=== PATIENT | female | born 1955 | race Caucasian/White ===

== ENCOUNTER 2019-04-11 03:54 | Emergency (ER) | payer MEDICARE ==
[~2019-04-11] VITALS: Ht 177.8 cm; Wt 113.4 kg
[~2019-04-11 03:54] MED LIST: BACL20TA PO; HYDR-4792 PO; MONT10TA23 PO; OMEP20CA74 PO; THYR48.7 PO
[2019-04-11] MEDS ORDERED: ACETAMINOPHEN 650 MG RECT SUPP PR ONE (04:15)
[2019-04-11] MEDS ORDERED: SODIUM CHLORIDE 0.9% 2,700 ML IV ONE (04:30)
[2019-04-11 05:22] LABS: Basophils # (auto) 0 uL; Basophils % (auto) 0.2 % (0.0-2.0); Eosinophils # (auto) 0 uL; Eosinophils % (auto) 0.3 % (0.0-7.0); Hematocrit 41.7 % (36.0-46.0); Lymphocytes # (auto) 0.7 uL; Lymphocytes % (auto) 9.6 % (10.0-50.0); Mean Corpuscular Hgb Conc. 33.6 g/dL (32.0-36.0); Mean Corpuscular Volume 83.4 fL (80.0-100.0); Monocytes # (auto) 0.3 uL; Monocytes % (auto) 3.9 % (0.0-12.0); Neutrophils # (auto) 5.9 uL; Nucleated Red Blood Cells % 0.1 %; Platelet Count (auto) 118 10^3/uL (140-450); Red Cell Distribution Width 14.4 % (11.8-14.3); White Blood Cell 6.9 10^3/uL (4.4-10.8)
[2019-04-11 05:27] LABS: Urine Bacteria FEW /hpf (None Seen); Urine Blood 2+ /uL (Negative); Urine Hyaline Cast FEW /lpf (0 - 2); Urine Mucus FEW (None Seen); Urine Specific Gravity 1.012 (1.001-1.035); Urine WBC <1 /hpf (0 - 5)
[2019-04-11 05:38] LABS: Calcium 8.2 mg/dL (8.5-10.1); Chloride 107 mmol/L (98-107); Potassium 3.9 mmol/L (3.5-5.1); Sodium 141 mmol/L (136-145)
[2019-04-11 05:41] LABS: Alcohol, Urine < 3.0 mg/dL (0-5); Amphetamine Screen, Urine NEGATIVE (NEGATIVE); Barbiturate Scree,Urine NEGATIVE (NEGATIVE); Benzodiazephine Screen, Urine NEGATIVE (NEGATIVE); Cannabinoid Screen, Urine NEGATIVE (NEGATIVE); Cocaine Screen, Urine NEGATIVE (NEGATIVE); Opiate Scree,Urine NEGATIVE (NEGATIVE); Phencyclidine Screen, Urine NEGATIVE (NEGATIVE)
[2019-04-11 05:45] LABS: Lactic Acid w/Reflex 3.2 mmol/L (0.4-2.0)
[2019-04-11 05:47] LABS: Alanine Aminotransferase 49 U/L (13-56); Alkaline Phosphatase 102 U/L (45-117); Anion Gap 8 (5-15); Aspartate Aminotransferase 43 U/L (15-37); BUN/Creatinine Ratio 9.2; Bilirubin, Total 0.6 mg/dL (0.2-1.0); Blood Alcohol < 3.0 mg/dL (0-5); Blood Urea Nitrogen 13 mg/dL (7-18); Carbon Dioxide 26 mmol/L (21-32); GFR African American 48 mL/min; GFR Non-African American 40 mL/min; Glucose 103 mg/dL (74-106); Magnesium 1.6 mg/dL (1.6-2.6); Total Protein 6.9 g/dL (6.4-8.2)
[2019-04-11 06:46] LABS: INR 1.13 (0.9-1.15); Partial Thromboplastin Time 29.8 sec (23.64-32.05)
[2019-04-11 06:47] VITALS: BP 173/76
== END 2019-04-11 06:15 | disposition short-term general hospital (02) ==
LOC: EDBD 03:54 → ER 03:54
DX: I60.9 Nontraumatic subarachnoid hemorrhage, unspecified (principal); K57.90 Diverticulosis of intestine, part unspecified, without perforation or abscess without bleeding; J32.9 Chronic sinusitis, unspecified; R41.82 Altered mental status, unspecified; E78.5 Hyperlipidemia, unspecified; E07.9 Disorder of thyroid, unspecified
CPT/HCPCS: 36415; 70450; 71045; 72125; 74176; 80053; 80307; 80320; 81001; 83605; 83735; 84484; 85025; 85610; 85730; 87040; 93005; 96360; 99291; J7030; L0120

== ENCOUNTER 2020-02-28 06:34 | Inpatient (IN) | payer MEDICARE, OTHER ==
[~2020-02-28] VITALS: Ht 172.7 cm; Wt 84.4 kg
[~2020-02-28 06:34] MED LIST changes: +HYDR-4623 PO; -HYDR-4792 PO
[2020-02-28 10:59] LABS: Basophils # (auto) 0 10 ^3/uL (0-0.2); Basophils % (auto) 0.2 % (0.0-2.0); Eosinophils # (auto) 0 10 ^3/uL (0-0.8); Eosinophils % (auto) 0.1 % (0.0-7.0); Hematocrit 45.1 % (36.0-46.0); Hemoglobin 14.6 g/dL (12.2-16.2); Lymphocytes # (auto) 0.3 10 ^3/uL (0.4-5.4); Lymphocytes % (auto) 1.9 % (10.0-50.0); Mean Corpuscular Hemoglobin 27.3 pg (28.0-32.0); Mean Corpuscular Hgb Conc. 32.4 g/dL (32.0-36.0); Mean Corpuscular Volume 84.3 fL (80.0-100.0); Monocytes # (auto) 0.2 10 ^3/uL (0-1.3); Neutrophils # (auto) 17.9 10 ^3/uL (1.6-8.6); Neutrophils % (auto) 96.8 % (37.0-80.0); Nucleated Red Blood Cells % 0.1 %; Platelet Count (auto) 194 10^3/uL (140-450); Red Blood Cells 5.35 10^6/uL (4.0-5.20); Red Cell Distribution Width 14.5 % (11.8-14.3); White Blood Cell 18.5 10^3/uL (4.4-10.8)
[2020-02-28 11:16] LABS: Albumin 2.8 g/dL (3.4-5.0); Anion Gap 12 (5-15); Blood Urea Nitrogen 17 mg/dL (7-18); Calcium 8.7 mg/dL (8.5-10.1); Carbon Dioxide 21 mmol/L (21-32); Chloride 106 mmol/L (98-107); Glucose 94 mg/dL (74-106); Potassium 3.3 mmol/L (3.5-5.1); Sodium 139 mmol/L (136-145)
[2020-02-28 11:23] LABS: Alanine Aminotransferase 132 U/L (13-56); Alkaline Phosphatase 287 U/L (45-117); Aspartate Aminotransferase 229 U/L (15-37); BUN/Creatinine Ratio 7.5; Bilirubin, Total 1.3 mg/dL (0.2-1.0); GFR African American 28 mL/min; GFR Non-African American 23 mL/min; Total Protein 7.2 g/dL (6.4-8.2)
[2020-02-28 11:27] LABS: INR 1.14 (0.9-1.15); Partial Thromboplastin Time 32.6 sec (23.0-31.2)
[2020-02-28] MEDS ORDERED: POTASSIUM CHLORIDE 20 MEQ, LIDOCAINE 1% (LOCAL ANESTH.) 2 ML in SODIUM CHL 0.9% 100 ML IV ONE (12:30)
[2020-02-28] MEDS ORDERED: SODIUM CHLORIDE 0.9% 1,000 ML IV ONE ×2 (12:30→15:30)
[2020-02-28] MEDS ORDERED: NITROGLYCERIN 0.4 MG SL TAB SL PRN (12:30)
[2020-02-28] MEDS ORDERED: MORPHINE SULF INJ 2 MG/ML SYRINGE 1ML IV PRN (12:30)
[2020-02-28] MEDS ORDERED: SODIUM CHLORIDE 0.9% 1,000 ML IV SCH (12:30)
[2020-02-28] MEDS ORDERED: DEXTROSE 50% SYRINGE 50 ML IV ONE ×5 (13:17→22:41)
[2020-02-28] MEDS ORDERED: THYR60TA PO (13:24)
[2020-02-28] MEDS ORDERED: CHOL20007 PO (13:25)
[2020-02-28] MEDS ORDERED: PANT40TA2 PO (13:25)
[2020-02-28] MEDS ORDERED: D5W/ SOD CHL 0.9%/KCL 20MEQ 1,000 ML IV SCH (15:30)
[2020-02-28] MEDS: DOXYCYCLINE 100MG/250ML 250 ML IV SCH (18:00)
[2020-02-28] MEDS: ACCU-CHEK COMFORT CURVE STRIP VI SCH (18:30)
[2020-02-28] MEDS ORDERED: DEXTROSE 10% 1,000 ML IV ONE (19:55)
[2020-02-29] MEDS: ACCU-CHEK COMFORT CURVE STRIP VI SCH ×8 (01:00→22:30)
[2020-02-29] MEDS ORDERED: DEXTROSE 10% 1,000 ML IV ONE ×2 (07:30→12:45)
[2020-02-29] MEDS ORDERED: DEXTROSE (50%) 50ML SYRG IV ONE ×3 (07:30→12:00)
[2020-02-29] MEDS: cefTRIAXone 1GM/50ML D5W 50 ML IV SCH (08:30)
[2020-02-29 09:35] LABS: Potassium 3.8 mmol/L (3.5-5.1)
[2020-02-29 10:35] LABS: BUN/Creatinine Ratio 10.4; Bilirubin, Total 4.2 mg/dL (0.2-1.0); Calcium 7.6 mg/dL (8.5-10.1); Total Protein 6.2 g/dL (6.4-8.2)
[2020-02-29 10:39] LABS: Lactic Acid w/Reflex 3.6 mmol/L (0.4-2.0)
[2020-02-29] MEDS: DOXYCYCLINE 100MG/250ML 250 ML IV SCH ×2 (12:30→13:19)
[2020-02-29] MEDS ORDERED: GLUCAGON HYDROCHLORIDE (RDNA) 1 MG VIAL IM ONE (12:45)
[2020-02-29] MEDS: HYDROCORTISONE SOD SUCC 100 MG/2ML INJ VIAL IV SCH ×2 (12:45→22:06)
[2020-02-29] MEDS ORDERED: DEXTROSE 10% 1,000 ML IV SCH (13:15)
[2020-02-29 16:55] LABS: Urine Amorphous Crystal FEW /hpf (None Seen); Urine Bacteria NONE SEEN /hpf (None Seen); Urine Blood 2+ /uL (Negative); Urine Hyaline Cast FEW /lpf (0 - 2); Urine Mucus FEW (None Seen); Urine Specific Gravity 1.015 (1.001-1.035); Urine WBC 2 /hpf (0 - 5)
[2020-02-29] MEDS: DEXTROSE 10% 1,000 ML IV SCH ×2 (18:04→23:15)
[2020-03-01] MEDS: ACCU-CHEK COMFORT CURVE STRIP VI SCH ×6 (05:04→17:52)
[2020-03-01 07:29] LABS: Basophils # (auto) 0.1 10 ^3/uL (0-0.2); Basophils % (auto) 0.6 % (0.0-2.0); Eosinophils # (auto) 0 10 ^3/uL (0-0.8); Eosinophils % (auto) 0.1 % (0.0-7.0); Hematocrit 42.8 % (36.0-46.0); Hemoglobin 14.5 g/dL (12.2-16.2); Lymphocytes # (auto) 0.7 10 ^3/uL (0.4-5.4); Lymphocytes % (auto) 5.5 % (10.0-50.0); Mean Corpuscular Hemoglobin 27.6 pg (28.0-32.0); Mean Corpuscular Volume 81.1 fL (80.0-100.0); Monocytes # (auto) 0.4 10 ^3/uL (0-1.3); Monocytes % (auto) 2.6 % (0.0-12.0); Neutrophils # (auto) 12.3 10 ^3/uL (1.6-8.6); Neutrophils % (auto) 91.2 % (37.0-80.0); Platelet Count (auto) 136 10^3/uL (140-450); Red Blood Cells 5.28 10^6/uL (4.0-5.20); Red Cell Distribution Width 14.8 % (11.8-14.3); White Blood Cell 13.5 10^3/uL (4.4-10.8)
[2020-03-01 08:26] LABS: Albumin 2.2 g/dL (3.4-5.0); BUN/Creatinine Ratio 11.3; Bilirubin, Total 2.9 mg/dL (0.2-1.0); Potassium 3.8 mmol/L (3.5-5.1); Total Protein 6.2 g/dL (6.4-8.2)
[2020-03-01] MEDS: cefTRIAXone 1GM/50ML D5W 50 ML IV SCH (09:00)
[2020-03-01] MEDS: DEXTROSE 10% 1,000 ML IV SCH ×2 (09:15→19:32)
[2020-03-01 09:57] VITALS: BP 141/96
[2020-03-01] MEDS: HYDROCORTISONE SOD SUCC 100 MG/2ML INJ VIAL IV SCH ×2 (10:00→17:55)
[2020-03-01 16:00] VITALS: BP 135/76
[2020-03-01 22:00] VITALS: BP 120/80
[2020-03-02] MEDS: ACCU-CHEK COMFORT CURVE STRIP VI SCH ×8 (00:03→23:30)
[2020-03-02 05:34] VITALS: BP 146/75
[2020-03-02] MEDS: DEXTROSE 10% 1,000 ML IV SCH ×2 (05:36→15:17)
[2020-03-02 09:00] VITALS: BP 125/84
[2020-03-02] MEDS: ASPirin-EC 81 mg tab PO SCH (10:00)
[2020-03-02] MEDS: cefTRIAXone 1GM/50ML D5W 50 ML IV SCH (10:28)
[2020-03-02] MEDS: ENOXAPARIN SOD 30 MG/0.3 ML SYRINGE SC SCH (10:28)
[2020-03-02 13:00] VITALS: BP 113/57
[2020-03-02 17:00] VITALS: BP 103/42
[2020-03-02] MEDS: HYDROCORTISONE SOD SUCC 100 MG/2ML INJ VIAL IV SCH (18:14)
[2020-03-02 19:48] LABS: Sodium Urine 11 mmol/L (40-220)
[2020-03-02 19:49] LABS: Creatinine, Urine 38 mg/dL (30.0-125.0)
[2020-03-02 22:00] VITALS: BP 144/75
[2020-03-02] MEDS: ATORVASTATIN 20 MG TAB PO SCH (23:29)
[2020-03-03] MEDS: ACCU-CHEK COMFORT CURVE STRIP VI SCH ×7 (02:29→23:31)
[2020-03-03] MEDS: DEXTROSE 10% 1,000 ML IV SCH ×3 (02:29→13:00)
[2020-03-03 08:00] VITALS: BP 141/76
[2020-03-03 09:00] VITALS: BP 141/76
[2020-03-03] MEDS: cefTRIAXone 1GM/50ML D5W 50 ML IV SCH (09:00)
[2020-03-03] MEDS: ASPirin-EC 81 mg tab PO SCH (10:40)
[2020-03-03] MEDS: ENOXAPARIN SOD 30 MG/0.3 ML SYRINGE SC SCH (10:41)
[2020-03-03 13:00] VITALS: BP 119/58
[2020-03-03 17:00] VITALS: BP 150/69
[2020-03-03] MEDS: HYDROCORTISONE SOD SUCC 100 MG/2ML INJ VIAL IV SCH (18:16)
[2020-03-03 20:00] VITALS: BP 141/76
[2020-03-03 21:40] VITALS: BP_SYST 139; BP_SYST 145; BP_DIAS 68; BP_DIAS 69
[2020-03-03 21:45] LABS: Basophils # (auto) 0 10 ^3/uL (0-0.2); Basophils % (auto) 0.2 % (0.0-2.0); Eosinophils # (auto) 0 10 ^3/uL (0-0.8); Eosinophils % (auto) 0.3 % (0.0-7.0); Hematocrit 33.3 % (36.0-46.0); Hemoglobin 11.6 g/dL (12.2-16.2); Lymphocytes # (auto) 0.8 10 ^3/uL (0.4-5.4); Lymphocytes % (auto) 10.1 % (10.0-50.0); Mean Corpuscular Hgb Conc. 34.7 g/dL (32.0-36.0); Mean Corpuscular Volume 80.8 fL (80.0-100.0); Monocytes # (auto) 0.4 10 ^3/uL (0-1.3); Monocytes % (auto) 4.7 % (0.0-12.0); Neutrophils # (auto) 6.5 10 ^3/uL (1.6-8.6); Neutrophils % (auto) 84.7 % (37.0-80.0); Platelet Count (auto) 92 10^3/uL (140-450); Red Blood Cells 4.12 10^6/uL (4.0-5.20); Red Cell Distribution Width 14.7 % (11.8-14.3); White Blood Cell 7.7 10^3/uL (4.4-10.8)
[2020-03-03 21:58] LABS: BUN/Creatinine Ratio 19.9; Calcium 7.7 mg/dL (8.5-10.1); Potassium 3.1 mmol/L (3.5-5.1)
[2020-03-03] MEDS: FAMOTIDINE 20 MG TAB PO SCH (23:30)
[2020-03-03] MEDS: ATORVASTATIN 20 MG TAB PO SCH (23:30)
[2020-03-04 05:00] VITALS: BP 128/66
[2020-03-04 06:05] LABS: Basophils # (auto) 0 10 ^3/uL (0-0.2); Basophils % (auto) 0.1 % (0.0-2.0); Eosinophils # (auto) 0 10 ^3/uL (0-0.8); Eosinophils % (auto) 0.2 % (0.0-7.0); Hematocrit 32.7 % (36.0-46.0); Hemoglobin 11.2 g/dL (12.2-16.2); Lymphocytes # (auto) 0.9 10 ^3/uL (0.4-5.4); Lymphocytes % (auto) 13.4 % (10.0-50.0); Mean Corpuscular Hemoglobin 27.9 pg (28.0-32.0); Mean Corpuscular Hgb Conc. 34.4 g/dL (32.0-36.0); Monocytes # (auto) 0.5 10 ^3/uL (0-1.3); Monocytes % (auto) 6.6 % (0.0-12.0); Neutrophils # (auto) 5.5 10 ^3/uL (1.6-8.6); Neutrophils % (auto) 79.7 % (37.0-80.0); Platelet Count (auto) 99 10^3/uL (140-450); Red Blood Cells 4.03 10^6/uL (4.0-5.20); Red Cell Distribution Width 14.4 % (11.8-14.3); White Blood Cell 6.9 10^3/uL (4.4-10.8)
[2020-03-04 06:20] LABS: Calcium 7.7 mg/dL (8.5-10.1); Potassium 3.4 mmol/L (3.5-5.1)
[2020-03-04 06:24] LABS: BUN/Creatinine Ratio 22.4
[2020-03-04] MEDS: ACCU-CHEK COMFORT CURVE STRIP VI SCH ×7 (06:30→22:52)
[2020-03-04] MEDS: cefTRIAXone 1GM/50ML D5W 50 ML IV SCH (06:30)
[2020-03-04] MEDS: DEXTROSE 10% 1,000 ML IV SCH (06:32)
[2020-03-04 09:00] VITALS: BP 144/71
[2020-03-04] MEDS: ASPirin-EC 81 mg tab PO SCH (09:06)
[2020-03-04] MEDS: ENOXAPARIN SOD 30 MG/0.3 ML SYRINGE SC SCH (09:07)
[2020-03-04 13:00] VITALS: BP 141/74
[2020-03-04] MEDS: D5W/SOD CHL 0.45% 1,000 ML IV SCH (16:52)
[2020-03-04 17:00] VITALS: BP 127/54
[2020-03-04 22:00] VITALS: BP 135/64
[2020-03-04] MEDS: FLUDROCORTISONE ACETATE 0.1 MG TAB PO SCH (22:51)
[2020-03-04] MEDS: ATORVASTATIN 20 MG TAB PO SCH (22:51)
[2020-03-04] MEDS: FAMOTIDINE 20 MG TAB PO SCH (22:52)
[2020-03-05] MEDS: ACCU-CHEK COMFORT CURVE STRIP VI SCH ×7 (03:13→23:26)
[2020-03-05 05:47] VITALS: BP 124/70
[2020-03-05] MEDS: FLUDROCORTISONE ACETATE 0.1 MG TAB PO SCH ×2 (10:00→21:18)
[2020-03-05] MEDS: ASPirin-EC 81 mg tab PO SCH (10:00)
[2020-03-05] MEDS: CLOPIDOGREL BISULFATE 75 MG TAB PO SCH (10:00)
[2020-03-05] MEDS: D5W/SOD CHL 0.45% 1,000 ML IV SCH ×2 (10:01→22:23)
[2020-03-05] MEDS: ENOXAPARIN SOD 30 MG/0.3 ML SYRINGE SC SCH (10:01)
[2020-03-05] MEDS ORDERED: LORA-622 PO (10:37)
[2020-03-05] MEDS ORDERED: GABA300C10 PO (10:37)
[2020-03-05] MEDS ORDERED: OXYB5TAB24 PO (10:37)
[2020-03-05] MEDS ORDERED: ATOR10TA PO (10:37)
[2020-03-05] MEDS ORDERED: ACETAMINOPHEN 325 MG TAB PO PRN (13:45)
[2020-03-05] MEDS ORDERED: ONDANSETRON HCL 4 MG/2 ML VIAL IV PRN (13:45)
[2020-03-05 21:17] VITALS: BP 126/61
[2020-03-05] MEDS: ATORVASTATIN 20 MG TAB PO SCH (21:19)
[2020-03-05] MEDS: FAMOTIDINE 20 MG TAB PO SCH (21:19)
[2020-03-06] MEDS: ACCU-CHEK COMFORT CURVE STRIP VI SCH ×6 (03:50→17:48)
[2020-03-06 05:30] VITALS: BP 151/60
[2020-03-06 06:24] LABS: BUN/Creatinine Ratio 15.8; Calcium 7.6 mg/dL (8.5-10.1)
[2020-03-06 08:00] VITALS: BP 136/60
[2020-03-06] MEDS: FLUDROCORTISONE ACETATE 0.1 MG TAB PO SCH ×2 (09:40→21:44)
[2020-03-06] MEDS: ASPirin-EC 81 mg tab PO SCH (09:40)
[2020-03-06] MEDS: ENOXAPARIN SOD 30 MG/0.3 ML SYRINGE SC SCH (09:40)
[2020-03-06] MEDS: CLOPIDOGREL BISULFATE 75 MG TAB PO SCH (09:40)
[2020-03-06 11:29] LABS: Folate (Folic Acid) 10.35 ng/mL (5.38-24)
[2020-03-06 12:00] VITALS: BP 125/71
[2020-03-06] MEDS: POTASSIUM CHL 20MEQ/100ML 100 ML IV SCH ×3 (13:58→17:58)
[2020-03-06] MEDS ORDERED: GLUCAGON HYDROCHLORIDE (RDNA) 1 MG VIAL IV ONE (15:30)
[2020-03-06 16:00] VITALS: BP 149/76
[2020-03-06] MEDS: DEXTROSE (50%) 50ML SYRG IV PRN ×3 (16:46→23:22)
[2020-03-06] MEDS: ATORVASTATIN 20 MG TAB PO SCH (21:45)
[2020-03-06] MEDS: FAMOTIDINE 20 MG TAB PO SCH (21:45)
[2020-03-06 22:00] VITALS: BP 129/69
[2020-03-07] MEDS: ACCU-CHEK COMFORT CURVE STRIP VI SCH ×7 (00:01→18:00)
[2020-03-07] MEDS: D5W/SOD CHL 0.45% 1,000 ML IV SCH ×2 (02:15→22:15)
[2020-03-07] MEDS: DEXTROSE (50%) 50ML SYRG IV PRN ×3 (02:58→09:00)
[2020-03-07 05:00] VITALS: BP 125/64
[2020-03-07] MEDS: FLUDROCORTISONE ACETATE 0.1 MG TAB PO SCH ×2 (10:00→22:00)
[2020-03-07] MEDS: CLOPIDOGREL BISULFATE 75 MG TAB PO SCH (10:00)
[2020-03-07] MEDS: ASPirin-EC 81 mg tab PO SCH (10:00)
[2020-03-07] MEDS: ENOXAPARIN SOD 30 MG/0.3 ML SYRINGE SC SCH (10:10)
[2020-03-07 10:16] LABS: BUN/Creatinine Ratio 10.2; Calcium 7.1 mg/dL (8.5-10.1); Potassium 3.2 mmol/L (3.5-5.1)
[2020-03-07] MEDS ORDERED: methylPREDNISolone SOD SUCC 40 MG/ML VL IM ONE (11:45)
[2020-03-07] MEDS ORDERED: methylPREDNISolone SOD SUCC 40 MG/ML VL IV ONE (12:30)
[2020-03-07] MEDS: POTASSIUM CHL 20MEQ/100ML 100 ML IV SCH ×3 (14:23→20:00)
[2020-03-07 16:00] VITALS: BP 136/73
[2020-03-07] MEDS: methylPREDNISolone SOD SUCC 40 MG/ML VL IV SCH ×2 (20:00→22:00)
[2020-03-08] MEDS: FAMOTIDINE 20 MG TAB PO SCH (00:08)
[2020-03-08] MEDS: ATORVASTATIN 20 MG TAB PO SCH (00:08)
[2020-03-08] MEDS: ACCU-CHEK COMFORT CURVE STRIP VI SCH ×6 (03:00→18:00)
[2020-03-08] MEDS: methylPREDNISolone SOD SUCC 40 MG/ML VL IV SCH ×2 (06:00→14:00)
[2020-03-08] MEDS: ASPirin-EC 81 mg tab PO SCH (09:16)
[2020-03-08] MEDS: CLOPIDOGREL BISULFATE 75 MG TAB PO SCH (09:16)
[2020-03-08] MEDS: FLUDROCORTISONE ACETATE 0.1 MG TAB PO SCH (10:00)
[2020-03-08] MEDS ORDERED: ENOXAPARIN SOD 40 MG/0.4 ML SYRINGE SC SCH (10:00)
[2020-03-08] MEDS: Glucerna Carbsteady SHAKE Vanilla 8oz PO SCH ×2 (13:22→19:12)
[2020-03-08 16:00] VITALS: BP 108/67
[2020-03-08 17:40] VITALS: BP 108/67
[2020-03-08] MEDS ORDERED: methylPREDNISolone 4 MG TAB PO SCH (22:00)
== END 2020-03-08 20:40 | DRG 871 ==
LOC: EDBD 06:34 → ER 06:34 → TELE 06:35 → TELE-CENTR 03-01 17:46
PROVIDERS: ADMIT Nurse Practitioner Acute Care; ATTEND Hospitalist
DX: A41.9 Sepsis, unspecified organism (principal); I63.9 Cerebral infarction, unspecified; G93.41 Metabolic encephalopathy; J18.9 Pneumonia, unspecified organism; N17.0 Acute kidney failure with tubular necrosis; E44.0 Moderate protein-calorie malnutrition; D68.59 Other primary thrombophilia; E87.2 Acidosis; N18.30 Chronic kidney disease, stage 3 unspecified; E03.9 Hypothyroidism, unspecified; E11.22 Type 2 diabetes mellitus with diabetic chronic kidney disease; E11.649 Type 2 diabetes mellitus with hypoglycemia without coma; E78.5 Hyperlipidemia, unspecified; E87.6 Hypokalemia; H66.91 Otitis media, unspecified, right ear; I65.23 Occlusion and stenosis of bilateral carotid arteries; Z79.82 Long term (current) use of aspirin; Z79.899 Other long term (current) drug therapy; Z82.49 Family history of ischemic heart disease and other diseases of the circulatory system; Z86.73 Personal history of transient ischemic attack (TIA), and cerebral infarction without residual deficits; R74.01 Elevation of levels of liver transaminase levels; Z20.822 Contact with and (suspected) exposure to COVID-19; Z68.29 Body mass index [BMI] 29.0-29.9, adult
CPT/HCPCS: 36415; 70450; 70551; 71045; 76775; 80048; 80053; 81001; 82024; 82140; 82533; 82570; 82607; 82746; 82962; 83605; 83880; 84300; 84443; 84484; 85025; 85379; 85610; 85730; 87040; 87086; 87426; 92610; 93306; 93886; 93970; 95819; 97110; 97116; 97163; 97530; G0378; J0696; J2001; J2405; J3480; J3490

== ENCOUNTER 2020-11-07 22:48 | Emergency (ER) | payer OTHER ==
[~2020-11-07] VITALS: Ht 175.3 cm; Wt 90.7 kg
[~2020-11-07 22:48] MED LIST changes: +ATOR10TA PO; -BACL20TA PO; +CHOL20007 PO; +GABA300C10 PO; +LORA-622 PO; -MONT10TA23 PO; -OMEP20CA74 PO; +OXYB5TAB24 PO; +PANT40TA2 PO; -THYR48.7 PO; +THYR60TA PO
[2020-11-07] MEDS ORDERED: SODIUM CHLORIDE 0.9% 1,000 ML IV ONE (23:15)
[2020-11-07] MEDS ORDERED: cefTRIAXone 1GM/50ML D5W 50 ML IV ONE (23:15)
[2020-11-07 23:35] LABS: Basophils # (auto) 0 10 ^3/uL (0-0.2); Basophils % (auto) 0.3 % (0.0-2.0); Eosinophils # (auto) 0 10 ^3/uL (0-0.8); Hematocrit 42.5 % (36.0-46.0); Hemoglobin 14.3 g/dL (12.2-16.2); Lymphocytes # (auto) 0.9 10 ^3/uL (0.4-5.4); Lymphocytes % (auto) 8.1 % (10.0-50.0); Mean Corpuscular Hemoglobin 28.5 pg (28.0-32.0); Mean Corpuscular Hgb Conc. 33.7 g/dL (32.0-36.0); Mean Corpuscular Volume 84.5 fL (80.0-100.0); Monocytes # (auto) 0.7 10 ^3/uL (0-1.3); Monocytes % (auto) 5.8 % (0.0-12.0); Neutrophils % (auto) 85.8 % (37.0-80.0); Nucleated Red Blood Cells % 0.2 %; Red Blood Cells 5.03 10^6/uL (4.0-5.20); Red Cell Distribution Width 14.3 % (11.8-14.3); White Blood Cell 11.6 10^3/uL (4.4-10.8)
[2020-11-07 23:55] LABS: INR 1.08 (0.9-1.15); Partial Thromboplastin Time 28.8 sec (23.6-33.0)
[2020-11-08 00:02] LABS: Urine Bacteria NONE SEEN /hpf (None Seen); Urine Blood 2+ /uL (Negative); Urine Mucus FEW (None Seen); Urine Specific Gravity 1.018 (1.001-1.035); Urine WBC 11 /hpf (0 - 5)
[2020-11-08 00:07] LABS: Calcium 8.6 mg/dL (8.5-10.1); Chloride 105 mmol/L (98-107); Potassium 3.8 mmol/L (3.5-5.1)
[2020-11-08 00:17] LABS: Alanine Aminotransferase 39 U/L (13-56); Albumin 2.9 g/dL (3.4-5.0); Alkaline Phosphatase 102 U/L (45-117); Aspartate Aminotransferase 49 U/L (15-37); BUN/Creatinine Ratio 7.5; Bilirubin, Total 0.6 mg/dL (0.2-1.0); Blood Urea Nitrogen 13 mg/dL (7-18); Carbon Dioxide 22 mmol/L (21-32); GFR African American 38 mL/min; GFR Non-African American 31 mL/min; Glucose 102 mg/dL (74-106); Total Protein 7.6 g/dL (6.4-8.2)
[2020-11-08 00:41] LABS: Anion Gap 11 (5-15); Sodium 138 mmol/L (136-145)
[2020-11-08] MEDS ORDERED: SODIUM CHLORIDE 0.9% 1,000 ML IV ONE (00:45)
[2020-11-08 00:46] LABS: Alcohol, Urine < 3.0 mg/dL (0-10); Amphetamine Screen, Urine NEGATIVE (NEGATIVE); Barbiturate Scree,Urine NEGATIVE (NEGATIVE); Benzodiazephine Screen, Urine NEGATIVE (NEGATIVE); Cannabinoid Screen, Urine NEGATIVE (NEGATIVE); Cocaine Screen, Urine NEGATIVE (NEGATIVE); Opiate Scree,Urine NEGATIVE (NEGATIVE); Phencyclidine Screen, Urine NEGATIVE (NEGATIVE)
[2020-11-08] MEDS ORDERED: LABETALOL HCL 5 MG/ML 4ML SYRINGE IV ONE ×2 (01:15→02:15)
[2020-11-08] MEDS ORDERED: SUCCINYLCHOLINE CHLORIDE 20 MG/ML 10ML VIAL IV ONE (01:30)
[2020-11-08] MEDS ORDERED: ETOMIDATE (2MG/ML) 20ML VIAL IV ONE ×2 (01:30→01:54)
[2020-11-08 01:52] VITALS: BP 172/92
[2020-11-08] MEDS ORDERED: PROPOFOL 100 ML IV ONE (02:04)
[2020-11-08] MEDS ORDERED: PROPOFOL 10 MG/ML 20 ML IV ONE (02:30)
== END 2020-11-08 02:39 | disposition short-term general hospital (02) ==
LOC: EDBD 22:48 → ER 22:48
DX: I60.9 Nontraumatic subarachnoid hemorrhage, unspecified (principal); G93.41 Metabolic encephalopathy; E78.5 Hyperlipidemia, unspecified; Z79.899 Other long term (current) drug therapy; Z20.822 Contact with and (suspected) exposure to COVID-19
CPT/HCPCS: 31500; 36415; 36556; 70450; 70486; 71045; 71250; 72125; 73060; 74176; 80053; 80307; 81001; 82728; 83605; 83880; 84484; 85025; 85610; 85730; 86141; 87040; 87426; 93005; 96361; 96365; 96375; 96376; 99291; J0330; J0696; J2704; J3490

== ENCOUNTER 2021-06-05 10:03 | Inpatient (IN) | payer OTHER ==
[~2021-06-05] VITALS: Ht 172.7 cm; Wt 107.5 kg
[2021-06-05 11:08] LABS: Urine Bacteria NONE SEEN /hpf (None Seen); Urine Blood TRACE /uL (Negative); Urine Specific Gravity 1.011 (1.001-1.035); Urine WBC 1 /hpf (0 - 5)
[2021-06-05] MEDS ORDERED: ACETAMINOPHEN 650 MG RECT SUPP PR ONE (11:15)
[2021-06-05] MEDS ORDERED: SODIUM CHLORIDE 0.9% 1,000 ML IV ONE ×2 (11:30)
[2021-06-05] MEDS ORDERED: AZITHROMYCIN 500MG/ 250ML 250 ML IV ONE (11:30)
[2021-06-05] MEDS ORDERED: cefTRIAXone 1GM/50ML D5W 50 ML IV ONE ×2 (11:30→18:00)
[2021-06-05] MEDS ORDERED: SODIUM CHLORIDE 0.9% 4,100 ML IV ONE (11:45)
[2021-06-05 12:13] LABS: Basophils # (auto) 0 10 ^3/uL (0-0.2); Hemoglobin 12.5 g/dL (12.2-16.2); Lymphocytes # (auto) 0.2 10 ^3/uL (0.4-5.4); Monocytes # (auto) 0.1 10 ^3/uL (0-1.3); Nucleated Red Blood Cells % 0.2 %
[2021-06-05 12:15] LABS: Albumin 2.6 g/dL (3.4-5.0); Calcium 8.7 mg/dL (8.5-10.1); Potassium 3.2 mmol/L (3.5-5.1)
[2021-06-05 12:17] LABS: BUN/Creatinine Ratio 12.4; Lactic Acid w/Reflex 4.2 mmol/L (0.4-2.0)
[2021-06-05 12:18] LABS: Basophils % (auto) 0.4 % (0.0-2.0); Eosinophils # (auto) 0.1 10 ^3/uL (0-0.8); Eosinophils % (auto) 1.1 % (0.0-7.0); Hematocrit 38.6 % (36.0-46.0); Lymphocytes % (auto) 2.7 % (10.0-50.0); Mean Corpuscular Hemoglobin 25.7 pg (28.0-32.0); Mean Corpuscular Hgb Conc. 32.4 g/dL (32.0-36.0); Mean Corpuscular Volume 79.3 fL (80.0-100.0); Monocytes % (auto) 0.8 % (0.0-12.0); Neutrophils # (auto) 7.3 10 ^3/uL (1.6-8.6); Red Blood Cells 4.86 10^6/uL (4.0-5.20); White Blood Cell 7.6 10^3/uL (4.4-10.8)
[2021-06-05 12:22] LABS: Bilirubin, Total 0.9 mg/dL (0.2-1.0); Total Protein 6.3 g/dL (6.4-8.2)
[2021-06-05] MEDS ORDERED: MORPHINE SULFATE INJECTION 2 MG/ML SYRG IV PRN ×2 (13:15→19:45)
[2021-06-05] MEDS ORDERED: NITROGLYCERIN 0.4 MG SL TAB SL PRN (13:15)
[2021-06-05] MEDS ORDERED: POTASSIUM CHL 20MEQ/100ML 100 ML IV ONE (13:15)
[2021-06-05] MEDS ORDERED: LACTATED RINGER'S 1,000 ML IV ONE (13:15)
[2021-06-05 13:51] LABS: Alcohol, Urine < 3.0 mg/dL (0-10); Amphetamine Screen, Urine NEGATIVE (NEGATIVE); Barbiturate Scree,Urine NEGATIVE (NEGATIVE); Benzodiazephine Screen, Urine NEGATIVE (NEGATIVE); Cannabinoid Screen, Urine NEGATIVE (NEGATIVE); Cocaine Screen, Urine NEGATIVE (NEGATIVE); Opiate Scree,Urine NEGATIVE (NEGATIVE); Phencyclidine Screen, Urine NEGATIVE (NEGATIVE)
[2021-06-05 14:39] VITALS: BP 126/65
[2021-06-05] MEDS ORDERED: ASPI-543 PO (16:02)
[2021-06-05] MEDS ORDERED: AMAN100C12 PO (16:02)
[2021-06-05] MEDS ORDERED: LEVO125T7 PO (16:02)
[2021-06-05] MEDS ORDERED: ATOR40TA52 PO (16:02)
[2021-06-05] MEDS ORDERED: DIVA250T12 PO (16:02)
[2021-06-05] MEDS ORDERED: ALEN35TA18 PO (16:02)
[2021-06-05 16:52] VITALS: BP 126/41
[2021-06-05] MEDS ORDERED: DexAMETHasone SOD PHOS 10MG/1ML VIAL INJ IV ONE (17:00)
[2021-06-05] MEDS ORDERED: ACYCLOVIR SOD 50MG/ML 800 MG in SODIUM CHL 0.9% 250 ML IV ONE (17:00)
[2021-06-05] MEDS ORDERED: VANCOMYCIN PER PHARMACY 0 MG IV SCH (17:00)
[2021-06-05] MEDS ORDERED: CEFTRIAXONE SODIUM 2 GM in D5W 5% 50 ML IV ONE (17:00)
[2021-06-05] MEDS ORDERED: ACETAMINOPHEN 650 MG RECT SUPP PR PRN ×2 (17:00→19:45)
[2021-06-05] MEDS ORDERED: CHOLESTYRAMINE 4 GM POWDER PO ONE (18:45)
[2021-06-05] MEDS ORDERED: methIMAzole 5 MG TAB PO ONE (19:30)
[2021-06-05] MEDS ORDERED: ATENOLOL 25 MG TAB PO ONE (19:30)
[2021-06-05] MEDS ORDERED: DOCUSATE SOD 100 MG CAP PO PRN (19:45)
[2021-06-05] MEDS ORDERED: AMPICILLIN SOD 2GM INJ 2 GM in SODIUM CHL 0.9% 100 ML IV ONE (19:45)
[2021-06-05] MEDS ORDERED: HYDROcodone-ACET 5/325MG TAB PO ONE (19:45)
[2021-06-05] MEDS ORDERED: LACTULOSE 20Gm/30ML SOLN PO PRN (19:45)
[2021-06-05] MEDS ORDERED: LORazepam 2MG/ML-1ML VIAL IV PRN (19:45)
[2021-06-05] MEDS ORDERED: ONDANSETRON HCL 4 MG/2 ML VIAL IV PRN (19:45)
[2021-06-05] MEDS ORDERED: FAMOTIDINE (10MG/ML) 2ML VL IV ONE (19:45)
[2021-06-05] MEDS ORDERED: LORazepam 0.5 MG TAB PO PRN (19:45)
[2021-06-05] MEDS ORDERED: VANCOMYCIN 1GM/250ML 250 ML IV ONE (20:00)
[2021-06-05 20:09] LABS: Magnesium 1.7 mg/dL (1.6-2.6); Phosphorus 1.4 mg/dL (2.5-4.90)
[2021-06-05 21:32] LABS: INR 1.31 (0.9-1.15); Partial Thromboplastin Time 35.3 sec (23.6-33.0)
[2021-06-05 22:00] VITALS: BP 89/50
[2021-06-05] MEDS ORDERED: CHOLESTYRAMINE 4 GM POWDER PO SCH (22:00)
[2021-06-05] MEDS: ATORVASTATIN 20 MG TAB PO SCH (22:00)
[2021-06-05] MEDS: ATENOLOL 25 MG TAB PO SCH (22:00)
[2021-06-05 23:00] VITALS: BP 97/45
[2021-06-05] MEDS: D5W/LACTATED RINGERS 1,000 ML IV SCH (23:03)
[2021-06-06] VITALS (8 sets, daily range): BP systolic 83–133; BP diastolic 40–57
[2021-06-06] MEDS: AMPICILLIN SOD 2GM INJ 2 GM in SODIUM CHL 0.9% 100 ML IV SCH ×4 (02:12→22:18)
[2021-06-06] MEDS: D5W/LACTATED RINGERS 1,000 ML IV SCH ×2 (05:30→15:30)
[2021-06-06 06:50] LABS: Basophils # (auto) 0 10 ^3/uL (0-0.2); Basophils % (auto) 0.1 % (0.0-2.0); Eosinophils # (auto) 0 10 ^3/uL (0-0.8); Hemoglobin 11.2 g/dL (12.2-16.2); Monocytes # (auto) 0.1 10 ^3/uL (0-1.3); Red Blood Cells 4.21 10^6/uL (4.0-5.20)
[2021-06-06 06:51] LABS: Hematocrit 33.4 % (36.0-46.0); Lymphocytes # (auto) 0.2 10 ^3/uL (0.4-5.4); Lymphocytes % (auto) 1.8 % (10.0-50.0); Mean Corpuscular Hemoglobin 26.7 pg (28.0-32.0); Mean Corpuscular Hgb Conc. 33.6 g/dL (32.0-36.0); Mean Corpuscular Volume 79.3 fL (80.0-100.0); Monocytes % (auto) 1.1 % (0.0-12.0); Neutrophils # (auto) 9.1 10 ^3/uL (1.6-8.6); White Blood Cell 9.4 10^3/uL (4.4-10.8)
[2021-06-06 06:55] LABS: INR 1.61 (0.9-1.15); Partial Thromboplastin Time 32.7 sec (23.6-33.0)
[2021-06-06 07:04] LABS: Albumin 1.9 g/dL (3.4-5.0); Calcium 7.6 mg/dL (8.5-10.1); Magnesium 1.7 mg/dL (1.6-2.6); Potassium 4.2 mmol/L (3.5-5.1)
[2021-06-06 07:10] LABS: BUN/Creatinine Ratio 12.5; Phosphorus 2.5 mg/dL (2.5-4.90); Total Protein 5.4 g/dL (6.4-8.2); Uric Acid 5.1 mg/dL (2.6-6.0)
[2021-06-06 08:39] LABS: CRP High Sensitivity 17.9 mg/dL (< 0.3)
[2021-06-06] MEDS ORDERED: FLUDROCORTISONE ACETATE 0.1 MG TAB PO SCH (10:00)
[2021-06-06] MEDS: DexAMETHasone SOD PHOS 10MG/1ML VIAL INJ IV SCH (10:00)
[2021-06-06] MEDS: CHOLECALCIFEROL (VITD3) 2,000 UNIT CAP/TAB PO SCH (10:00)
[2021-06-06] MEDS: ATENOLOL 25 MG TAB PO SCH ×2 (10:00→22:18)
[2021-06-06] MEDS ORDERED: CEFTRIAXONE SODIUM 2 GM in D5W 5% 50 ML IV SCH (10:00)
[2021-06-06] MEDS: FAMOTIDINE (10MG/ML) 2ML VL IV SCH (10:00)
[2021-06-06] MEDS ORDERED: ENOXAPARIN SOD 40 MG/0.4 ML SYRINGE SC SCH (10:00)
[2021-06-06] MEDS ORDERED: ASPirin 81 mg TAB PO SCH (10:00)
[2021-06-06] MEDS ORDERED: ACYCLOVIR 10MG/KG Q8HR PER RX 0 ML IV SCH (10:45)
[2021-06-06] MEDS: HYDROcodone-ACET 5/325MG TAB PO PRN (13:19)
[2021-06-06] MEDS ORDERED: ACYCLOVIR SOD 50MG/ML 750 MG in SODIUM CHL 0.9% 250 ML IV SCH (14:00)
[2021-06-06] MEDS: CEFTRIAXONE SODIUM 2 GM in D5W 5% 50 ML IV SCH (14:44)
[2021-06-06] MEDS: ACYCLOVIR SOD 50MG/ML 750 MG in SODIUM CHL 0.9% 250 ML IV SCH (18:23)
[2021-06-06] MEDS: ATORVASTATIN 20 MG TAB PO SCH (22:17)
[2021-06-07] MEDS: D5W/LACTATED RINGERS 1,000 ML IV SCH ×3 (01:30→21:42)
[2021-06-07] MEDS: AMPICILLIN SOD 2GM INJ 2 GM in SODIUM CHL 0.9% 100 ML IV SCH ×3 (04:31→16:32)
[2021-06-07 05:00] VITALS: BP 140/72
[2021-06-07 05:47] LABS: BUN/Creatinine Ratio 21.6; Calcium 7.8 mg/dL (8.5-10.1); Potassium 4.1 mmol/L (3.5-5.1)
[2021-06-07] MEDS: ACYCLOVIR SOD 50MG/ML 750 MG in SODIUM CHL 0.9% 250 ML IV SCH ×3 (06:10→23:10)
[2021-06-07] MEDS ORDERED: VANCOMYCIN 1GM/250ML 250 ML IV SCH (08:00)
[2021-06-07 09:33] VITALS: BP 130/60
[2021-06-07] MEDS: CHOLECALCIFEROL (VITD3) 2,000 UNIT CAP/TAB PO SCH (10:09)
[2021-06-07] MEDS: DexAMETHasone SOD PHOS 10MG/1ML VIAL INJ IV SCH (10:09)
[2021-06-07] MEDS: FAMOTIDINE (10MG/ML) 2ML VL IV SCH (10:09)
[2021-06-07] MEDS: CEFTRIAXONE SODIUM 2 GM in D5W 5% 50 ML IV SCH (10:10)
[2021-06-07] MEDS: ATENOLOL 25 MG TAB PO SCH ×2 (10:11→23:08)
[2021-06-07 10:34] LABS: INR 1.07 (0.9-1.15); Partial Thromboplastin Time 30.7 sec (23.6-33.0)
[2021-06-07 13:00] VITALS: BP 125/62
[2021-06-07 20:00] VITALS: BP 139/67
[2021-06-07 22:00] VITALS: BP 139/67
[2021-06-07] MEDS: ATORVASTATIN 20 MG TAB PO SCH (23:09)
[2021-06-08] MEDS: AMPICILLIN SOD 2GM INJ 2 GM in SODIUM CHL 0.9% 100 ML IV SCH ×5 (00:38→23:18)
[2021-06-08] MEDS: ACYCLOVIR SOD 50MG/ML 750 MG in SODIUM CHL 0.9% 250 ML IV SCH ×3 (06:27→22:11)
[2021-06-08 09:00] VITALS: BP 139/70
[2021-06-08 09:05] LABS: INR 1.01 (0.9-1.15)
[2021-06-08] MEDS: D5W/LACTATED RINGERS 1,000 ML IV SCH ×2 (09:10→17:30)
[2021-06-08] MEDS: CHOLECALCIFEROL (VITD3) 2,000 UNIT CAP/TAB PO SCH (09:10)
[2021-06-08 09:11] LABS: Albumin 2.3 g/dL (3.4-5.0); Bilirubin, Direct 0.1 mg/dL (0-0.2)
[2021-06-08] MEDS: ATENOLOL 25 MG TAB PO SCH ×2 (09:12→22:00)
[2021-06-08] MEDS: FAMOTIDINE (10MG/ML) 2ML VL IV SCH (09:13)
[2021-06-08] MEDS: DexAMETHasone SOD PHOS 10MG/1ML VIAL INJ IV SCH (09:13)
[2021-06-08 09:14] LABS: Bilirubin, Total 0.2 mg/dL (0.2-1.0); Total Protein 5.8 g/dL (6.4-8.2)
[2021-06-08] MEDS: CEFTRIAXONE SODIUM 2 GM in D5W 5% 50 ML IV SCH (09:47)
[2021-06-08 13:00] VITALS: BP 136/65
[2021-06-08] MEDS ORDERED: LIDOCAINE 2%HCL (LOCAL ANESTH.) INJ 10ml MDV ONE (14:14)
[2021-06-08 17:00] VITALS: BP 140/74
[2021-06-08] MEDS: VANCOMYCIN 1GM/250ML 250 ML IV SCH (17:36)
[2021-06-08 21:30] VITALS: BP 135/76
[2021-06-08] MEDS: ATORVASTATIN 20 MG TAB PO SCH (22:09)
[2021-06-09] MEDS: AMPICILLIN SOD 2GM INJ 2 GM in SODIUM CHL 0.9% 100 ML IV SCH ×4 (04:25→22:38)
[2021-06-09] MEDS: ACYCLOVIR SOD 50MG/ML 750 MG in SODIUM CHL 0.9% 250 ML IV SCH ×3 (05:51→21:21)
[2021-06-09] MEDS: D5W/LACTATED RINGERS 1,000 ML IV SCH ×3 (05:53→23:32)
[2021-06-09 09:00] VITALS: BP 144/66
[2021-06-09] MEDS: FAMOTIDINE (10MG/ML) 2ML VL IV SCH (10:01)
[2021-06-09] MEDS: DexAMETHasone SOD PHOS 10MG/1ML VIAL INJ IV SCH (10:01)
[2021-06-09] MEDS: ATENOLOL 25 MG TAB PO SCH ×2 (10:02→21:50)
[2021-06-09] MEDS: CEFTRIAXONE SODIUM 2 GM in D5W 5% 50 ML IV SCH (10:02)
[2021-06-09] MEDS: CHOLECALCIFEROL (VITD3) 2,000 UNIT CAP/TAB PO SCH (10:02)
[2021-06-09 12:46] VITALS: BP 155/75
[2021-06-09 17:00] VITALS: BP 143/68
[2021-06-09] MEDS: VANCOMYCIN 1GM/250ML 250 ML IV SCH (17:37)
[2021-06-09] MEDS: ATORVASTATIN 20 MG TAB PO SCH (21:21)
[2021-06-09 22:00] VITALS: BP 141/69
[2021-06-10] MEDS: AMPICILLIN SOD 2GM INJ 2 GM in SODIUM CHL 0.9% 100 ML IV SCH ×4 (04:43→23:02)
[2021-06-10 05:00] VITALS: BP 133/73
[2021-06-10] MEDS: ACYCLOVIR SOD 50MG/ML 750 MG in SODIUM CHL 0.9% 250 ML IV SCH ×3 (06:51→21:08)
[2021-06-10] MEDS: hydrALAZINE HCL 20 MG/ML VL IV PRN (07:33)
[2021-06-10 08:39] VITALS: BP 162/81
[2021-06-10] MEDS: DexAMETHasone SOD PHOS 10MG/1ML VIAL INJ IV SCH (09:18)
[2021-06-10] MEDS: FAMOTIDINE (10MG/ML) 2ML VL IV SCH (09:18)
[2021-06-10] MEDS: CHOLECALCIFEROL (VITD3) 2,000 UNIT CAP/TAB PO SCH (09:18)
[2021-06-10] MEDS: CEFTRIAXONE SODIUM 2 GM in D5W 5% 50 ML IV SCH (09:19)
[2021-06-10] MEDS: ATENOLOL 25 MG TAB PO SCH ×2 (09:30→21:46)
[2021-06-10] MEDS: D5W/LACTATED RINGERS 1,000 ML IV SCH ×2 (09:30→19:30)
[2021-06-10 13:00] VITALS: BP 102/57
[2021-06-10 17:00] VITALS: BP 132/69
[2021-06-10] MEDS: VANCOMYCIN 1GM/250ML 250 ML IV SCH (18:27)
[2021-06-10] MEDS: ATORVASTATIN 20 MG TAB PO SCH (21:07)
[2021-06-10 21:48] VITALS: BP 137/60
[2021-06-11] MEDS: AMPICILLIN SOD 2GM INJ 2 GM in SODIUM CHL 0.9% 100 ML IV SCH ×2 (04:04→11:24)
[2021-06-11 04:51] VITALS: BP 169/96
[2021-06-11] MEDS: D5W/LACTATED RINGERS 1,000 ML IV SCH (04:52)
[2021-06-11 05:09] LABS: Hematocrit 26.6 % (36.0-46.0); Hemoglobin 9.1 g/dL (12.2-16.2); Mean Corpuscular Hemoglobin 26.4 pg (28.0-32.0); Mean Corpuscular Hgb Conc. 34.2 g/dL (32.0-36.0); Mean Corpuscular Volume 77.1 fL (80.0-100.0); Red Blood Cells 3.45 10^6/uL (4.0-5.20); Red Cell Distribution Width 15.9 % (11.8-14.3); White Blood Cell 12.1 10^3/uL (4.4-10.8)
[2021-06-11 05:28] LABS: Calcium 7.8 mg/dL (8.5-10.1); Potassium 3.9 mmol/L (3.5-5.1)
[2021-06-11 05:31] LABS: BUN/Creatinine Ratio 19.4
[2021-06-11 05:42] LABS: Basophils % (manual) 0 (0.0-2.0); Blast Cells 0; Eosinophils % (manual) 0 (0-7); Metamyelocytes % 0; Myelocytes % 0; Promyelocytes % 0; Reactive Lymphocytes 0
[2021-06-11] MEDS: ACYCLOVIR SOD 50MG/ML 750 MG in SODIUM CHL 0.9% 250 ML IV SCH ×2 (06:17→15:38)
[2021-06-11 06:19] VITALS: BP 151/71
[2021-06-11 07:02] LABS: Band Neutrophils % (manual) 1; Lymphocytes % (manual) 10 (10.0-50.0); Monocytes % (manual) 3 (0-12)
[2021-06-11 09:00] VITALS: BP 158/75
[2021-06-11] MEDS: ATENOLOL 25 MG TAB PO SCH ×2 (10:00→21:06)
[2021-06-11] MEDS ORDERED: LORazepam 2MG/ML-1ML VIAL IV PRN (10:00)
[2021-06-11] MEDS: CHOLECALCIFEROL (VITD3) 2,000 UNIT CAP/TAB PO SCH (10:04)
[2021-06-11] MEDS: FAMOTIDINE (10MG/ML) 2ML VL IV SCH (10:04)
[2021-06-11] MEDS: DexAMETHasone SOD PHOS 10MG/1ML VIAL INJ IV SCH (10:04)
[2021-06-11] MEDS: CEFTRIAXONE SODIUM 2 GM in D5W 5% 50 ML IV SCH ×2 (10:05→21:05)
[2021-06-11 11:41] LABS: Hepatitis B Surface Antibody Negative (Negative)
[2021-06-11 12:30] VITALS: BP 142/63
[2021-06-11 13:29] LABS: Hepatitis C Antibody Negative (Negative)
[2021-06-11] MEDS ORDERED: ASPirin 81 mg TAB PO ONE (16:00)
[2021-06-11] MEDS ORDERED: ALPRAZolam 0.25 MG TAB PO PRN (16:15)
[2021-06-11 17:00] VITALS: BP 143/60
[2021-06-11] MEDS: VANCOMYCIN 1GM/250ML 250 ML IV SCH (17:17)
[2021-06-11] MEDS: FLUDROCORTISONE ACETATE 0.1 MG TAB PO SCH (17:18)
[2021-06-11] MEDS: ATORVASTATIN 20 MG TAB PO SCH (21:05)
[2021-06-11] MEDS: hydrALAZINE HCL 20 MG/ML VL IV PRN (21:07)
[2021-06-11 22:00] VITALS: BP 163/76
[2021-06-12] MEDS: ACYCLOVIR SOD 50MG/ML 750 MG in SODIUM CHL 0.9% 250 ML IV SCH ×4 (00:35→22:14)
[2021-06-12 05:00] VITALS: BP 178/80
[2021-06-12] MEDS: hydrALAZINE HCL 20 MG/ML VL IV PRN ×2 (05:16→12:31)
[2021-06-12 05:35] VITALS: BP 152/74
[2021-06-12 08:39] VITALS: BP 143/59
[2021-06-12] MEDS: CEFTRIAXONE SODIUM 2 GM in D5W 5% 50 ML IV SCH ×2 (09:54→21:07)
[2021-06-12] MEDS: FLUDROCORTISONE ACETATE 0.1 MG TAB PO SCH (09:54)
[2021-06-12] MEDS: CHOLECALCIFEROL (VITD3) 2,000 UNIT CAP/TAB PO SCH (09:54)
[2021-06-12] MEDS: FAMOTIDINE (10MG/ML) 2ML VL IV SCH (09:54)
[2021-06-12] MEDS: ASPirin 81 mg TAB PO SCH (09:54)
[2021-06-12] MEDS: ATENOLOL 25 MG TAB PO SCH (09:55)
[2021-06-12] MEDS: VANCOMYCIN 1GM/250ML 250 ML IV SCH (12:25)
[2021-06-12 12:31] VITALS: BP 173/83
[2021-06-12 16:38] VITALS: BP 124/55
[2021-06-12] MEDS: HYDROcodone-ACET 5/325MG TAB PO PRN (18:09)
[2021-06-12] MEDS: ATORVASTATIN 20 MG TAB PO SCH (21:07)
[2021-06-12 21:34] LABS: Anion Gap 7 (5-15); Blood Urea Nitrogen 16 mg/dL (7-18); Carbon Dioxide 27 mmol/L (21-32); Chloride 107 mmol/L (98-107); Glucose 81 mg/dL (74-106); Potassium 3.3 mmol/L (3.5-5.1); Sodium 141 mmol/L (136-145)
[2021-06-12 21:35] LABS: BUN/Creatinine Ratio 17.2; Calcium 7.8 mg/dL (8.5-10.1); GFR African American 78 mL/min; GFR Non-African American 64 mL/min
[2021-06-12 22:00] VITALS: BP 148/65
[2021-06-13] MEDS: VANCOMYCIN 1GM/250ML 250 ML IV SCH (05:00)
[2021-06-13 05:17] VITALS: BP 132/60
[2021-06-13] MEDS: ACYCLOVIR SOD 50MG/ML 750 MG in SODIUM CHL 0.9% 250 ML IV SCH ×3 (06:06→22:39)
[2021-06-13 07:07] LABS: Calcium 7.7 mg/dL (8.5-10.1); Potassium 3.5 mmol/L (3.5-5.1)
[2021-06-13 07:11] LABS: BUN/Creatinine Ratio 18.4
[2021-06-13 09:00] VITALS: BP 159/67
[2021-06-13] MEDS: FAMOTIDINE (10MG/ML) 2ML VL IV SCH (09:58)
[2021-06-13] MEDS: ASPirin 81 mg TAB PO SCH (10:06)
[2021-06-13] MEDS: CEFTRIAXONE SODIUM 2 GM in D5W 5% 50 ML IV SCH ×2 (10:06→21:26)
[2021-06-13] MEDS: CHOLECALCIFEROL (VITD3) 2,000 UNIT CAP/TAB PO SCH (10:07)
[2021-06-13] MEDS: FLUDROCORTISONE ACETATE 0.1 MG TAB PO SCH (10:07)
[2021-06-13] MEDS: HYDROcodone-ACET 5/325MG TAB PO PRN (16:57)
[2021-06-13 17:00] VITALS: BP 154/81
[2021-06-13] MEDS: ATORVASTATIN 20 MG TAB PO SCH (21:26)
[2021-06-13 22:00] VITALS: BP 142/88
[2021-06-14] MEDS: VANCOMYCIN 1GM/250ML 250 ML IV SCH ×2 (00:17→18:43)
[2021-06-14] MEDS: HYDROcodone-ACET 5/325MG TAB PO PRN ×2 (00:20→22:44)
[2021-06-14 05:00] VITALS: BP 128/52
[2021-06-14] MEDS: ACYCLOVIR SOD 50MG/ML 750 MG in SODIUM CHL 0.9% 250 ML IV SCH ×3 (06:00→22:41)
[2021-06-14] MEDS: FAMOTIDINE (10MG/ML) 2ML VL IV SCH (09:36)
[2021-06-14] MEDS: FLUDROCORTISONE ACETATE 0.1 MG TAB PO SCH (09:36)
[2021-06-14] MEDS: CHOLECALCIFEROL (VITD3) 2,000 UNIT CAP/TAB PO SCH (09:36)
[2021-06-14] MEDS: ASPirin 81 mg TAB PO SCH (09:36)
[2021-06-14] MEDS: CEFTRIAXONE SODIUM 2 GM in D5W 5% 50 ML IV SCH ×2 (10:00→21:37)
[2021-06-14 13:00] VITALS: BP 141/66
[2021-06-14 20:00] VITALS: BP 129/77
[2021-06-14] MEDS: ATORVASTATIN 20 MG TAB PO SCH (22:00)
[2021-06-14 23:01] VITALS: BP 129/77
[2021-06-15] MEDS: ACYCLOVIR SOD 50MG/ML 750 MG in SODIUM CHL 0.9% 250 ML IV SCH ×3 (07:00→21:42)
[2021-06-15 08:00] VITALS: BP 140/70
[2021-06-15] MEDS: FAMOTIDINE (10MG/ML) 2ML VL IV SCH (09:51)
[2021-06-15] MEDS: ASPirin 81 mg TAB PO SCH (09:51)
[2021-06-15] MEDS: CHOLECALCIFEROL (VITD3) 2,000 UNIT CAP/TAB PO SCH (09:51)
[2021-06-15] MEDS: FLUDROCORTISONE ACETATE 0.1 MG TAB PO SCH (09:51)
[2021-06-15] MEDS: CEFTRIAXONE SODIUM 2 GM in D5W 5% 50 ML IV SCH ×2 (09:57→21:43)
[2021-06-15] MEDS: VANCOMYCIN 1GM/250ML 250 ML IV SCH (12:32)
[2021-06-15 13:00] VITALS: BP 169/85
[2021-06-15] MEDS ORDERED: LEVOTHYROXINE SODIUM 100 MCG TAB PO ONE (16:00)
[2021-06-15 17:00] VITALS: BP 149/68
[2021-06-15 20:00] VITALS: BP 160/76
[2021-06-15] MEDS: ATORVASTATIN 20 MG TAB PO SCH (21:40)
[2021-06-15 22:00] VITALS: BP 160/76
[2021-06-15] MEDS: OXYBUTYNIN CHL 5 MG TAB PO SCH (22:21)
[2021-06-15] MEDS: AMANTADINE HCL 100 MG CAP PO SCH (22:21)
[2021-06-16 05:00] VITALS: BP 156/75
[2021-06-16] MEDS: VANCOMYCIN 1GM/250ML 250 ML IV SCH (06:25)
[2021-06-16] MEDS: ACYCLOVIR SOD 50MG/ML 750 MG in SODIUM CHL 0.9% 250 ML IV SCH ×3 (06:27→21:50)
[2021-06-16 06:29] LABS: Lymphocytes # (auto) 1.3 10 ^3/uL (0.4-5.4); Lymphocytes % (auto) 13.1 % (10.0-50.0); Mean Corpuscular Hgb Conc. 33.5 g/dL (32.0-36.0); Nucleated Red Blood Cells % 0.1 %
[2021-06-16 06:32] LABS: Basophils # (auto) 0.1 10 ^3/uL (0-0.2); Basophils % (auto) 0.6 % (0.0-2.0); Eosinophils # (auto) 0.3 10 ^3/uL (0-0.8); Eosinophils % (auto) 2.6 % (0.0-7.0); Hematocrit 31.1 % (36.0-46.0); Hemoglobin 10.4 g/dL (12.2-16.2); Mean Corpuscular Hemoglobin 26.4 pg (28.0-32.0); Mean Corpuscular Volume 78.8 fL (80.0-100.0); Monocytes # (auto) 0.5 10 ^3/uL (0-1.3); Monocytes % (auto) 4.9 % (0.0-12.0); Neutrophils # (auto) 7.8 10 ^3/uL (1.6-8.6); Neutrophils % (auto) 78.8 % (37.0-80.0); Red Blood Cells 3.95 10^6/uL (4.0-5.20); White Blood Cell 9.9 10^3/uL (4.4-10.8)
[2021-06-16 06:39] LABS: BUN/Creatinine Ratio 9.8; Potassium 3.5 mmol/L (3.5-5.1)
[2021-06-16 09:00] VITALS: BP 138/68
[2021-06-16] MEDS ORDERED: ASPirin-EC 81 mg tab PO SCH (10:00)
[2021-06-16] MEDS: LEVOTHYROXINE SODIUM 100 MCG TAB PO SCH (10:04)
[2021-06-16] MEDS: ASPirin 81 mg TAB PO SCH (10:05)
[2021-06-16] MEDS: LORATADINE 10 MG TAB PO SCH (10:05)
[2021-06-16] MEDS: CEFTRIAXONE SODIUM 2 GM in D5W 5% 50 ML IV SCH ×2 (10:05→21:26)
[2021-06-16] MEDS: FAMOTIDINE (10MG/ML) 2ML VL IV SCH (10:05)
[2021-06-16] MEDS: FLUDROCORTISONE ACETATE 0.1 MG TAB PO SCH (10:06)
[2021-06-16] MEDS: CHOLECALCIFEROL (VITD3) 2,000 UNIT CAP/TAB PO SCH (10:06)
[2021-06-16] MEDS: OXYBUTYNIN CHL 5 MG TAB PO SCH ×2 (10:06→21:39)
[2021-06-16] MEDS: PANTOPRAZOLE 40 MG TAB PO SCH (10:06)
[2021-06-16] MEDS: AMANTADINE HCL 100 MG CAP PO SCH ×2 (10:06→21:39)
[2021-06-16 13:00] VITALS: BP 143/72
[2021-06-16 17:00] VITALS: BP 118/76
[2021-06-16 21:28] VITALS: BP 158/78
[2021-06-16] MEDS: ATORVASTATIN 20 MG TAB PO SCH (21:39)
[2021-06-17] MEDS: VANCOMYCIN 1GM/250ML 250 ML IV SCH ×2 (03:53→18:35)
[2021-06-17] MEDS: ACYCLOVIR SOD 50MG/ML 750 MG in SODIUM CHL 0.9% 250 ML IV SCH ×3 (05:35→21:51)
[2021-06-17] MEDS: FLUDROCORTISONE ACETATE 0.1 MG TAB PO SCH (08:48)
[2021-06-17] MEDS: OXYBUTYNIN CHL 5 MG TAB PO SCH ×2 (08:48→21:52)
[2021-06-17] MEDS: LORATADINE 10 MG TAB PO SCH (08:48)
[2021-06-17] MEDS: AMANTADINE HCL 100 MG CAP PO SCH ×2 (08:48→21:52)
[2021-06-17] MEDS: PANTOPRAZOLE 40 MG TAB PO SCH (08:48)
[2021-06-17] MEDS: ASPirin 81 mg TAB PO SCH (08:48)
[2021-06-17] MEDS: LEVOTHYROXINE SODIUM 100 MCG TAB PO SCH (08:50)
[2021-06-17] MEDS: CHOLECALCIFEROL (VITD3) 2,000 UNIT CAP/TAB PO SCH (08:50)
[2021-06-17] MEDS: FAMOTIDINE (10MG/ML) 2ML VL IV SCH (08:51)
[2021-06-17 09:00] VITALS: BP 130/69
[2021-06-17] MEDS: CEFTRIAXONE SODIUM 2 GM in D5W 5% 50 ML IV SCH ×2 (10:04→21:47)
[2021-06-17 13:00] VITALS: BP 123/68
[2021-06-17 17:00] VITALS: BP_SYST 103; BP_SYST 123; BP_DIAS 61; BP_DIAS 68
[2021-06-17] MEDS: ENSURE CLEAR Mixed Berry 8oz Carton PO SCH (18:00)
[2021-06-17 20:18] VITALS: BP 153/75
[2021-06-17] MEDS: ATORVASTATIN 20 MG TAB PO SCH (21:52)
[2021-06-17 22:00] VITALS: BP 153/75
[2021-06-18 05:00] VITALS: BP 146/71
[2021-06-18] MEDS: ACYCLOVIR SOD 50MG/ML 750 MG in SODIUM CHL 0.9% 250 ML IV SCH ×2 (06:27→15:07)
[2021-06-18] MEDS: LEVOTHYROXINE SODIUM 100 MCG TAB PO SCH (06:27)
[2021-06-18 09:00] VITALS: BP 142/61
[2021-06-18] MEDS: LORATADINE 10 MG TAB PO SCH (09:00)
[2021-06-18] MEDS: AMANTADINE HCL 100 MG CAP PO SCH (09:00)
[2021-06-18] MEDS: FAMOTIDINE (10MG/ML) 2ML VL IV SCH (09:00)
[2021-06-18] MEDS: CHOLECALCIFEROL (VITD3) 2,000 UNIT CAP/TAB PO SCH (09:01)
[2021-06-18] MEDS: FLUDROCORTISONE ACETATE 0.1 MG TAB PO SCH (09:01)
[2021-06-18] MEDS: PANTOPRAZOLE 40 MG TAB PO SCH (09:01)
[2021-06-18] MEDS: CEFTRIAXONE SODIUM 2 GM in D5W 5% 50 ML IV SCH (09:02)
[2021-06-18] MEDS: OXYBUTYNIN CHL 5 MG TAB PO SCH (09:02)
[2021-06-18] MEDS: ENSURE CLEAR Mixed Berry 8oz Carton PO SCH ×3 (09:02→18:00)
[2021-06-18] MEDS: ASPirin 81 mg TAB PO SCH (09:02)
[2021-06-18] MEDS: VANCOMYCIN 1GM/250ML 250 ML IV SCH (12:43)
[2021-06-18 12:49] VITALS: BP 131/58
[2021-06-18 13:48] VITALS: BP 173/83
== END 2021-06-18 17:09 | disposition home or self-care (01) | DRG 871 ==
LOC: EDBD 10:03 → ER 10:03 → TELE 13:15 → TELE-EAST 14:32 → TELE-WESTW 06-14 11:30
PROVIDERS: ADMIT Hospitalist; ATTEND Internal Medicine Geriatric Medicine
PROC: 05HD33Z Insertion of Infusion Device into Right Cephalic Vein, Percutaneous Approach (ICD-10-PCS; 2021-06-05)
PROC: B54MZZA Ultrasonography of Right Upper Extremity Veins, Guidance (ICD-10-PCS; 2021-06-05)
PROC: 05HA33Z Insertion of Infusion Device into Left Brachial Vein, Percutaneous Approach (ICD-10-PCS; 2021-06-06)
PROC: B54NZZA Ultrasonography of Left Upper Extremity Veins, Guidance (ICD-10-PCS; 2021-06-06)
PROC: 00JU3ZZ Inspection of Spinal Canal, Percutaneous Approach (ICD-10-PCS; principal; 2021-06-08)
PROC: B01B1ZZ Fluoroscopy of Spinal Cord using Low Osmolar Contrast (ICD-10-PCS; 2021-06-08)
PROC: 05HA33Z Insertion of Infusion Device into Left Brachial Vein, Percutaneous Approach (ICD-10-PCS; 2021-06-14)
PROC: B54NZZA Ultrasonography of Left Upper Extremity Veins, Guidance (ICD-10-PCS; 2021-06-14)
DX: A41.9 Sepsis, unspecified organism (principal); J18.9 Pneumonia, unspecified organism; G92.8 Other toxic encephalopathy; N17.0 Acute kidney failure with tubular necrosis; D68.9 Coagulation defect, unspecified; E44.0 Moderate protein-calorie malnutrition; A89 Unspecified viral infection of central nervous system; E66.01 Morbid (severe) obesity due to excess calories; K75.81 Nonalcoholic steatohepatitis (NASH); N18.32 Chronic kidney disease, stage 3b; Z68.34 Body mass index [BMI] 34.0-34.9, adult; Z96.659 Presence of unspecified artificial knee joint; R00.1 Bradycardia, unspecified; E78.5 Hyperlipidemia, unspecified; R79.89 Other specified abnormal findings of blood chemistry; Z20.822 Contact with and (suspected) exposure to COVID-19; D49.7 Neoplasm of unspecified behavior of endocrine glands and other parts of nervous system; R65.20 Severe sepsis without septic shock; Z79.82 Long term (current) use of aspirin; Z79.899 Other long term (current) drug therapy; Z82.49 Family history of ischemic heart disease and other diseases of the circulatory system; Z86.73 Personal history of transient ischemic attack (TIA), and cerebral infarction without residual deficits
CPT/HCPCS: 36415; 51702; 62272; 70450; 71045; 72100; 76705; 80048; 80053; 80061; 80076; 80202; 80307; 81001; 82378; 82550; 82565; 82728; 83036; 83605; 83615; 83690; 83735; 83880; 83970; 84100; 84112; 84443; 84484; 84550; 85007; 85014; 85018; 85025; 85027; 85379; 85610; 85730; 86141; 86304; 86704; 86706; 86708; 86803; 87040; 87086; 87340; 87804; 93005; 93306; 93886; 95819; 96361; 96365; 96368; 97110; 97116; 97530; 99291; G0378; J0696; J1100; J2001; J3480; J3490; J7060

== ENCOUNTER 2022-05-01 07:06 | Inpatient (IN) | payer OTHER ==
[~2022-05-01] VITALS: Ht 160 cm; Wt 93.9 kg
[~2022-05-01 07:06] MED LIST changes: +ALEN35TA18 PO; +AMAN100C12 PO; +ASPI-543 PO; -ATOR10TA PO; +ATOR40TA52 PO; -CHOL20007 PO; +DIVA250T12 PO; -GABA300C10 PO; +LEVO125T7 PO; -THYR60TA PO
[2022-05-01] MEDS ORDERED: SODIUM CHLORIDE 0.9% 500 ML IVB ONE (07:30)
[2022-05-01] MEDS ORDERED: DEXTROSE (50%) 50ML SYRG IV ONE (08:15)
[2022-05-01 08:28] LABS: INR 1.05 (0.9-1.15); Partial Thromboplastin Time 28.5 sec (24.6-33.4)
[2022-05-01] MEDS ORDERED: DEXTROSE 10% 250 ML IV ONE ×2 (08:30→08:55)
[2022-05-01 08:37] LABS: Alanine Aminotransferase 27 U/L (13-56); Anion Gap 8 (5-15); Aspartate Aminotransferase 30 U/L (15-37); Blood Alcohol < 3.0 mg/dL (0-5); Blood Urea Nitrogen 17 mg/dL (7-18); Calcium 8.3 mg/dL (8.5-10.1); Carbon Dioxide 28 mmol/L (21-32); Chloride 105 mmol/L (98-107); Glucose 101 mg/dL (74-106); Magnesium 1.3 mg/dL (1.6-2.6); Potassium 3.4 mmol/L (3.5-5.1); Sodium 141 mmol/L (136-145)
[2022-05-01 08:39] LABS: Alkaline Phosphatase 131 U/L (45-117); Bilirubin, Total 0.6 mg/dL (0.2-1.0); GFR African American 47 mL/min; GFR Non-African American 39 mL/min; Total Protein 6.5 g/dL (6.4-8.2)
[2022-05-01 09:02] LABS: Lactic Acid w/Reflex 3.6 mmol/L (0.4-2.0)
[2022-05-01 09:48] LABS: Alcohol, Urine < 3.0 mg/dL (0-10); Amphetamine Screen, Urine NEGATIVE (NEGATIVE); Barbiturate Scree,Urine NEGATIVE (NEGATIVE); Benzodiazephine Screen, Urine NEGATIVE (NEGATIVE); Cannabinoid Screen, Urine NEGATIVE (NEGATIVE); Cocaine Screen, Urine NEGATIVE (NEGATIVE); Opiate Scree,Urine NEGATIVE (NEGATIVE); Phencyclidine Screen, Urine NEGATIVE (NEGATIVE)
[2022-05-01 09:49] LABS: Urine Bacteria NONE SEEN /hpf (None Seen); Urine Blood 1+ /uL (Negative); Urine Hyaline Cast FEW /lpf (0 - 2); Urine Mucus FEW (None Seen); Urine Specific Gravity 1.018 (1.001-1.035); Urine WBC 8 /hpf (0 - 5)
[2022-05-01 10:48] LABS: Basophils # (auto) 0 10 ^3/uL (0-0.2); Eosinophils # (auto) 0 10 ^3/uL (0-0.8)
[2022-05-01 10:52] LABS: Basophils % (auto) 0.2 % (0.0-2.0); Eosinophils % (auto) 0.2 % (0.0-7.0); Hemoglobin 11.6 g/dL (12.2-16.2); Lymphocytes % (auto) 6.8 % (10.0-50.0); Mean Corpuscular Hemoglobin 23.3 pg (28.0-32.0); Mean Corpuscular Volume 70.5 fL (80.0-100.0); Monocytes # (auto) 0.6 10 ^3/uL (0-1.3); Monocytes % (auto) 4.1 % (0.0-12.0); Neutrophils # (auto) 12.9 10 ^3/uL (1.6-8.6); Neutrophils % (auto) 88.7 % (37.0-80.0); Red Blood Cells 4.97 10^6/uL (4.0-5.20); White Blood Cell 14.6 10^3/uL (4.4-10.8)
[2022-05-01] MEDS ORDERED: D5W/SOD CHLO 0.9% 1,000 ML IV ONE (11:30)
[2022-05-01] MEDS ORDERED: POTASSIUM EFFERVESENT TAB 25 MEQ PO ONE (12:00)
[2022-05-01] MEDS: MAGNESIUM SULFATE 1GM/100ML 100 ML IV SCH ×3 (12:40→16:45)
[2022-05-01] MEDS ORDERED: ONDANSETRON HCL 4 MG/2 ML VIAL IV PRN (12:45)
[2022-05-01] MEDS ORDERED: VANCOMYCIN PER PHARMACY 0 MG IV SCH (12:45)
[2022-05-01] MEDS ORDERED: SODIUM CHLORIDE 0.9% 1,000 ML IV SCH (12:45)
[2022-05-01] MEDS ORDERED: MORPHINE SULFATE INJ 2 MG/ml SYRG IV PRN (12:45)
[2022-05-01] MEDS ORDERED: DEXTROSE (50%) 50ML SYRG IV PRN (12:45)
[2022-05-01] MEDS ORDERED: NITROGLYCERIN 0.4 MG SL TAB SL PRN (12:45)
[2022-05-01] MEDS ORDERED: CEFEPIME 1GM/ 50ML 50 ML IV ONE (12:45)
[2022-05-01] MEDS ORDERED: PANTOPRAZOLE 40 MG/10 ML VIAL INJ IV ONE (13:00)
[2022-05-01] MEDS ORDERED: VANCOMYCIN 1GM/250ML 250 ML IV ONE (13:15)
[2022-05-01] MEDS ORDERED: D5W/SOD CHL 0.45% 1,000 ML IV ONE (13:45)
[2022-05-01] MEDS: InsuLIN REG 1unit/0.01ml Soln (100units/ml) SC SCH ×2 (16:00→20:30)
[2022-05-01 16:23] LABS: Lactic Acid w/Reflex 2.1 mmol/L (0.4-2.0)
[2022-05-01] MEDS: ACCU-CHEK COMFORT CURVE STRIP VI SCH ×2 (16:45→20:30)
[2022-05-01] MEDS: CEFEPIME 1GM/ 50ML 50 ML IV SCH (22:32)
[2022-05-02] MEDS: ACCU-CHEK COMFORT CURVE STRIP VI SCH ×6 (00:22→20:00)
[2022-05-02] MEDS: InsuLIN REG 1unit/0.01ml Soln (100units/ml) SC SCH ×6 (04:00→20:00)
[2022-05-02 05:00] VITALS: BP 96/53
[2022-05-02 08:39] VITALS: BP 95/47
[2022-05-02] MEDS: ENOXAPARIN SOD 40 MG/0.4 ML SYRINGE SC SCH (09:03)
[2022-05-02] MEDS: PANTOPRAZOLE 40 MG/10 ML VIAL INJ IV SCH (09:03)
[2022-05-02 10:19] LABS: Basophils # (auto) 0 10 ^3/uL (0-0.2); Eosinophils # (auto) 0.2 10 ^3/uL (0-0.8); Lymphocytes # (auto) 1.3 10 ^3/uL (0.4-5.4); Mean Corpuscular Hemoglobin 23.3 pg (28.0-32.0); Monocytes # (auto) 0.6 10 ^3/uL (0-1.3); Neutrophils # (auto) 8.1 10 ^3/uL (1.6-8.6); Nucleated Red Blood Cells % 0.1 %
[2022-05-02 10:21] LABS: Basophils % (auto) 0.5 % (0.0-2.0); Eosinophils % (auto) 2.2 % (0.0-7.0); Hematocrit 36.4 % (36.0-46.0); Hemoglobin 11.9 g/dL (12.2-16.2); Lymphocytes % (auto) 12.7 % (10.0-50.0); Mean Corpuscular Hgb Conc. 32.7 g/dL (32.0-36.0); Mean Corpuscular Volume 71.2 fL (80.0-100.0); Monocytes % (auto) 5.6 % (0.0-12.0); Red Blood Cells 5.11 10^6/uL (4.0-5.20); Red Cell Distribution Width 15.8 % (11.8-14.3); White Blood Cell 10.2 10^3/uL (4.4-10.8)
[2022-05-02 10:52] LABS: Albumin 2.2 g/dL (3.4-5.0); BUN/Creatinine Ratio 13.6; Bilirubin, Total 1.6 mg/dL (0.2-1.0); Potassium 3.3 mmol/L (3.5-5.1); Total Protein 5.7 g/dL (6.4-8.2)
[2022-05-02] MEDS: SODIUM CHLORIDE 0.9% 1,000 ML IV SCH (12:02)
[2022-05-02] MEDS: CEFEPIME 1GM/ 50ML 50 ML IV SCH ×2 (12:03→22:23)
[2022-05-02 13:00] VITALS: BP 131/50
[2022-05-02] MEDS: VANCOMYCIN 1GM/250ML 250 ML IV SCH (15:32)
[2022-05-02 17:00] VITALS: BP 93/53
[2022-05-02 22:00] VITALS: BP 117/56
[2022-05-02] MEDS: ATORVASTATIN 20 MG TAB PO SCH (22:00)
[2022-05-03] MEDS: SODIUM CHLORIDE 0.9% 1,000 ML IV SCH ×2 (01:05→14:08)
[2022-05-03] MEDS: InsuLIN REG 1unit/0.01ml Soln (100units/ml) SC SCH ×7 (04:00→23:11)
[2022-05-03] MEDS: ACCU-CHEK COMFORT CURVE STRIP VI SCH ×8 (04:13→23:10)
[2022-05-03 05:00] VITALS: BP 108/51
[2022-05-03 06:28] LABS: Basophils # (auto) 0 10 ^3/uL (0-0.2); Eosinophils # (auto) 0.3 10 ^3/uL (0-0.8); Hemoglobin 10.6 g/dL (12.2-16.2); Monocytes # (auto) 0.3 10 ^3/uL (0-1.3)
[2022-05-03 06:30] LABS: Basophils % (auto) 0.4 % (0.0-2.0); Eosinophils % (auto) 4.8 % (0.0-7.0); Hematocrit 32.4 % (36.0-46.0); Lymphocytes # (auto) 0.9 10 ^3/uL (0.4-5.4); Lymphocytes % (auto) 14.6 % (10.0-50.0); Mean Corpuscular Hemoglobin 23.3 pg (28.0-32.0); Mean Corpuscular Hgb Conc. 32.6 g/dL (32.0-36.0); Mean Corpuscular Volume 71.5 fL (80.0-100.0); Monocytes % (auto) 5.2 % (0.0-12.0); Neutrophils # (auto) 4.8 10 ^3/uL (1.6-8.6); Red Blood Cells 4.54 10^6/uL (4.0-5.20); Red Cell Distribution Width 15.7 % (11.8-14.3); White Blood Cell 6.4 10^3/uL (4.4-10.8)
[2022-05-03 07:10] LABS: Potassium 3.6 mmol/L (3.5-5.1)
[2022-05-03 07:13] LABS: Calcium 7.7 mg/dL (8.5-10.1)
[2022-05-03 08:00] VITALS: BP 125/67
[2022-05-03 09:02] VITALS: BP 125/67
[2022-05-03] MEDS: ASPirin-EC 81 mg tab PO SCH (10:43)
[2022-05-03] MEDS: ACETAMINOPHEN 325 MG TAB PO PRN (10:44)
[2022-05-03] MEDS: CEFEPIME 1GM/ 50ML 50 ML IV SCH ×2 (10:45→17:54)
[2022-05-03] MEDS: PANTOPRAZOLE 40 MG/10 ML VIAL INJ IV SCH (10:47)
[2022-05-03] MEDS: ENOXAPARIN SOD 40 MG/0.4 ML SYRINGE SC SCH (10:48)
[2022-05-03 13:01] VITALS: BP 117/61
[2022-05-03] MEDS: VANCOMYCIN 1GM/250ML 250 ML IV SCH (16:19)
[2022-05-03 16:39] VITALS: BP 133/62
[2022-05-03] MEDS: ATORVASTATIN 20 MG TAB PO SCH (21:42)
[2022-05-03 22:00] VITALS: BP 125/71
[2022-05-04] MEDS: CEFEPIME 1GM/ 50ML 50 ML IV SCH ×3 (02:10→18:30)
[2022-05-04] MEDS: SODIUM CHLORIDE 0.9% 1,000 ML IV SCH ×3 (03:53→17:25)
[2022-05-04] MEDS: InsuLIN REG 1unit/0.01ml Soln (100units/ml) SC SCH ×5 (04:00→22:00)
[2022-05-04] MEDS: ACCU-CHEK COMFORT CURVE STRIP VI SCH ×5 (04:00→22:00)
[2022-05-04 05:00] VITALS: BP 119/69
[2022-05-04 08:05] VITALS: BP 121/59
[2022-05-04] MEDS: ENOXAPARIN SOD 40 MG/0.4 ML SYRINGE SC SCH ×2 (10:00→14:50)
[2022-05-04] MEDS: ASPirin-EC 81 mg tab PO SCH ×2 (10:00→14:50)
[2022-05-04] MEDS: PANTOPRAZOLE 40 MG/10 ML VIAL INJ IV SCH (10:16)
[2022-05-04 13:51] LABS: Eosinophils # (auto) 0.3 10 ^3/uL (0-0.8); Monocytes # (auto) 0.3 10 ^3/uL (0-1.3); White Blood Cell 4.8 10^3/uL (4.4-10.8)
[2022-05-04 13:53] LABS: Basophils # (auto) 0 10 ^3/uL (0-0.2); Basophils % (auto) 0.7 % (0.0-2.0); Eosinophils % (auto) 6.2 % (0.0-7.0); Hemoglobin 9.4 g/dL (12.2-16.2); Lymphocytes % (auto) 20.7 % (10.0-50.0); Mean Corpuscular Hemoglobin 23.3 pg (28.0-32.0); Mean Corpuscular Hgb Conc. 32.5 g/dL (32.0-36.0); Mean Corpuscular Volume 71.5 fL (80.0-100.0); Monocytes % (auto) 6.4 % (0.0-12.0); Neutrophils # (auto) 3.2 10 ^3/uL (1.6-8.6); Nucleated Red Blood Cells % 0.1 %; Red Blood Cells 4.05 10^6/uL (4.0-5.20); Red Cell Distribution Width 15.8 % (11.8-14.3)
[2022-05-04 14:08] LABS: BUN/Creatinine Ratio 10.3; Calcium 7.6 mg/dL (8.5-10.1); Potassium 3.3 mmol/L (3.5-5.1)
[2022-05-04 17:00] VITALS: BP 134/65
[2022-05-04] MEDS: VANCOMYCIN 1GM/250ML 250 ML IV SCH (17:25)
[2022-05-04] MEDS: ATORVASTATIN 20 MG TAB PO SCH (22:00)
[2022-05-05] MEDS: CEFEPIME 1GM/ 50ML 50 ML IV SCH ×3 (02:00→18:30)
[2022-05-05 05:00] VITALS: BP 145/69
[2022-05-05] MEDS: SODIUM CHLORIDE 0.9% 1,000 ML IV SCH (06:25)
[2022-05-05] MEDS: InsuLIN REG 1unit/0.01ml Soln (100units/ml) SC SCH ×4 (07:00→21:58)
[2022-05-05] MEDS: ACCU-CHEK COMFORT CURVE STRIP VI SCH ×4 (07:17→21:58)
[2022-05-05 09:00] VITALS: BP 136/78
[2022-05-05] MEDS: ENOXAPARIN SOD 40 MG/0.4 ML SYRINGE SC SCH (09:39)
[2022-05-05] MEDS: ASPirin-EC 81 mg tab PO SCH (09:39)
[2022-05-05] MEDS: PANTOPRAZOLE 40 MG/10 ML VIAL INJ IV SCH (09:39)
[2022-05-05] MEDS: VANCOMYCIN 1GM/250ML 250 ML IV SCH ×2 (11:00→14:23)
[2022-05-05 13:00] VITALS: BP 134/74
[2022-05-05] MEDS: ACETAMINOPHEN 325 MG TAB PO PRN (14:53)
[2022-05-05 21:48] VITALS: BP 149/77
[2022-05-05] MEDS: ATORVASTATIN 20 MG TAB PO SCH (21:58)
[2022-05-06] MEDS: SODIUM CHLORIDE 0.9% 1,000 ML IV SCH (01:32)
[2022-05-06] MEDS: CEFEPIME 1GM/ 50ML 50 ML IV SCH (01:34)
[2022-05-06] MEDS: InsuLIN REG 1unit/0.01ml Soln (100units/ml) SC SCH ×2 (06:13→11:30)
[2022-05-06] MEDS: ACCU-CHEK COMFORT CURVE STRIP VI SCH ×2 (06:13→11:46)
[2022-05-06] MEDS: VANCOMYCIN 1GM/250ML 250 ML IV SCH (08:17)
[2022-05-06] MEDS: PANTOPRAZOLE 40 MG/10 ML VIAL INJ IV SCH (08:17)
[2022-05-06] MEDS: ENOXAPARIN SOD 40 MG/0.4 ML SYRINGE SC SCH (08:17)
[2022-05-06] MEDS: ASPirin-EC 81 mg tab PO SCH (08:18)
[2022-05-06 13:00] VITALS: BP 135/75
[2022-05-06 13:51] LABS: Basophils # (auto) 0.1 10 ^3/uL (0-0.2); Basophils % (auto) 1.3 % (0.0-2.0); Eosinophils # (auto) 0.3 10 ^3/uL (0-0.8); Eosinophils % (auto) 5.8 % (0.0-7.0); Hematocrit 32.3 % (36.0-46.0); Lymphocytes # (auto) 1.4 10 ^3/uL (0.4-5.4); Lymphocytes % (auto) 30.5 % (10.0-50.0); Mean Corpuscular Hemoglobin 22.8 pg (28.0-32.0); Mean Corpuscular Hgb Conc. 30.8 g/dL (32.0-36.0); Mean Corpuscular Volume 74.1 fL (80.0-100.0); Monocytes # (auto) 0.4 10 ^3/uL (0-1.3); Monocytes % (auto) 7.9 % (0.0-12.0); Neutrophils # (auto) 2.5 10 ^3/uL (1.6-8.6); Neutrophils % (auto) 54.5 % (37.0-80.0); Nucleated Red Blood Cells % 0.3 %; Red Blood Cells 4.37 10^6/uL (4.0-5.20); Red Cell Distribution Width 15.6 % (11.8-14.3); White Blood Cell 4.5 10^3/uL (4.4-10.8)
[2022-05-06 14:09] LABS: BUN/Creatinine Ratio 5.6; Calcium 8.1 mg/dL (8.5-10.1); Potassium 3.4 mmol/L (3.5-5.1)
== END 2022-05-06 14:15 | disposition home health service (06) | DRG 871 ==
LOC: ER 07:06 → EDBD 07:06 → TELE 12:48 → TELE-WESTW 22:27
PROVIDERS: ADMIT Nurse Practitioner Family; ATTEND Internal Medicine Geriatric Medicine
PROC: 05HB33Z Insertion of Infusion Device into Right Basilic Vein, Percutaneous Approach (ICD-10-PCS; principal; 2022-05-01)
PROC: B54MZZA Ultrasonography of Right Upper Extremity Veins, Guidance (ICD-10-PCS; 2022-05-01)
DX: A41.9 Sepsis, unspecified organism (principal); G93.41 Metabolic encephalopathy; E46 Unspecified protein-calorie malnutrition; N17.9 Acute kidney failure, unspecified; N39.0 Urinary tract infection, site not specified; E87.20 Acidosis, unspecified; E87.6 Hypokalemia; E83.51 Hypocalcemia; N18.9 Chronic kidney disease, unspecified; Z20.822 Contact with and (suspected) exposure to COVID-19; F17.200 Nicotine dependence, unspecified, uncomplicated; D49.7 Neoplasm of unspecified behavior of endocrine glands and other parts of nervous system; E78.5 Hyperlipidemia, unspecified; D64.9 Anemia, unspecified; E11.649 Type 2 diabetes mellitus with hypoglycemia without coma; E03.9 Hypothyroidism, unspecified; R74.8 Abnormal levels of other serum enzymes; E86.0 Dehydration; E11.22 Type 2 diabetes mellitus with diabetic chronic kidney disease; Z86.73 Personal history of transient ischemic attack (TIA), and cerebral infarction without residual deficits; Z79.899 Other long term (current) drug therapy; Z79.82 Long term (current) use of aspirin; Z82.49 Family history of ischemic heart disease and other diseases of the circulatory system; Z68.36 Body mass index [BMI] 36.0-36.9, adult
CPT/HCPCS: 36415; 70450; 71045; 74176; 80048; 80053; 80202; 80307; 80320; 81001; 82962; 83036; 83605; 83735; 84484; 85025; 85610; 85730; 87040; 87086; 87426; 92610; 93005; 93306; 93886; 96360; 96361; 97110; 97116; 97163; 97530; C9113; G0378; J2405

== ENCOUNTER 2022-10-19 01:04 | Inpatient (IN) | payer OTHER ==
[~2022-10-19] VITALS: Ht 177.8 cm; Wt 88.2 kg
[~2022-10-19 01:04] MED LIST changes: -AMAN100C12 PO; +AMAN100C22 PO; -HYDR-4623 PO; +HYDR-4792 PO
[2022-10-19 01:36] LABS: Hematocrit 36.5 % (36.0-46.0); Hemoglobin 11.4 g/dL (12.2-16.2); Mean Corpuscular Hemoglobin 22.3 pg (28.0-32.0); Mean Corpuscular Hgb Conc. 31.4 g/dL (32.0-36.0); Mean Corpuscular Volume 71.1 fL (80.0-100.0); Red Blood Cells 5.13 10^6/uL (4.0-5.20); Red Cell Distribution Width 18.6 % (11.8-14.3); White Blood Cell 24.3 10^3/uL (4.4-10.8)
[2022-10-19 01:54] LABS: Albumin 2.7 g/dL (3.4-5.0); BUN/Creatinine Ratio 17.9 (10.0-20.0); Calcium 8.5 mg/dL (8.5-10.1); Magnesium 2.1 mg/dL (1.6-2.6); Potassium 4.3 mmol/L (3.5-5.1)
[2022-10-19 01:57] LABS: Basophils % (manual) 0 (0.0-2.0); Blast Cells 0; Metamyelocytes % 0; Myelocytes % 0; Promyelocytes % 0; Reactive Lymphocytes 0; Total Protein 6.9 g/dL (6.4-8.2)
[2022-10-19 02:00] VITALS: PULSE 110; RESP 26; O2SAT 92
[2022-10-19 03:10] LABS: Urine Bacteria FEW /hpf (None Seen); Urine Blood 1+ /uL (Negative); Urine Clarity Clear (Clear); Urine Color Yellow (Yellow); Urine Protein, UAD 1+ (Negative); Urine Specific Gravity 1.018 (1.001-1.035); Urine Urobilinogen Normal (Negative); Urine WBC 93 /hpf (0 - 5); Urine WBC Clumps PRESENT /hpf (None Seen)
[2022-10-19 03:23] LABS: Anisocytosis Slight; Band Neutrophils % (manual) 9; Eosinophils % (manual) 1 (0-7); Hypochromia Slight; Lymphocytes % (manual) 4 (10.0-50.0); Monocytes % (manual) 6 (0-12); Platelet Estimate Adequate
[2022-10-19 03:26] LABS: Alcohol, Urine < 3.0 mg/dL (0-10); Amphetamine Screen, Urine NEGATIVE (NEGATIVE); Barbiturate Scree,Urine NEGATIVE (NEGATIVE); Benzodiazephine Screen, Urine NEGATIVE (NEGATIVE); Cannabinoid Screen, Urine NEGATIVE (NEGATIVE); Cocaine Screen, Urine NEGATIVE (NEGATIVE); Opiate Scree,Urine NEGATIVE (NEGATIVE); Phencyclidine Screen, Urine NEGATIVE (NEGATIVE)
[2022-10-19] MEDS ORDERED: HYDROcodone-ACET 5/325MG TAB PO PRN (04:15)
[2022-10-19] MEDS ORDERED: cefTRIAXone 1GM/50ML D5W 50 ML IV ONE (04:15)
[2022-10-19] MEDS ORDERED: VANCOMYCIN PER PHARMACY 0 MG IV SCH (04:15)
[2022-10-19] MEDS ORDERED: SODIUM CHLORIDE 0.9% 1,000 ML IV SCH (04:15)
[2022-10-19] MEDS ORDERED: DOCUSATE SOD 100 MG CAP PO PRN (04:15)
[2022-10-19] MEDS ORDERED: ONDANSETRON HCL 4 MG/2 ML VIAL IV PRN (04:15)
[2022-10-19] MEDS ORDERED: MORPHINE SULFATE INJ 2 MG/ml SYRG IV PRN (04:45)
[2022-10-19] MEDS ORDERED: NITROGLYCERIN 0.4 MG SL TAB SL PRN (04:45)
[2022-10-19] MEDS ORDERED: VANCOMYCIN 1GM/250ML 250 ML IV ONE (05:00)
[2022-10-19] MEDS ORDERED: SODIUM CHLORIDE 0.9% 3,400 ML IV ONE (05:15)
[2022-10-19] MEDS: LEVOTHYROXINE SODIUM 50 MCG TAB PO SCH (07:00)
[2022-10-19 08:01] VITALS: PULSE 97; RESP 21; O2SAT 98
[2022-10-19] MEDS: ASPirin 81 mg TAB PO SCH (10:00)
[2022-10-19] MEDS: SODIUM CHLORIDE 0.9% 1,000 ML IV SCH ×2 (10:27→19:23)
[2022-10-19] MEDS: FAMOTIDINE (10MG/ML) 2ML VL IV SCH ×2 (10:27→22:23)
[2022-10-19] MEDS: VANCOMYCIN 1GM/250ML 250 ML IV SCH (13:11)
[2022-10-19] MEDS: ACETAMINOPHEN 325 MG TAB PO PRN ×2 (14:00→22:24)
[2022-10-19 19:30] VITALS: PULSE 101; RESP 16; O2SAT 96
[2022-10-19 21:20] VITALS: PULSE 102; RESP 13; O2SAT 99
[2022-10-20] MEDS: LEVOTHYROXINE SODIUM 50 MCG TAB PO SCH (06:43)
[2022-10-20] MEDS: SODIUM CHLORIDE 0.9% 1,000 ML IV SCH ×2 (06:47→16:32)
[2022-10-20 07:39] VITALS: PULSE 82; RESP 16; O2SAT 99
[2022-10-20 09:20] LABS: Basophils # (auto) 0 10 ^3/uL (0-0.2); Eosinophils # (auto) 0.3 10 ^3/uL (0-0.8); Lymphocytes # (auto) 0.9 10 ^3/uL (0.4-5.4); Monocytes # (auto) 0.3 10 ^3/uL (0-1.3)
[2022-10-20 09:22] LABS: Basophils % (auto) 0.2 % (0.0-2.0); Eosinophils % (auto) 3.2 % (0.0-7.0); Hematocrit 27.8 % (36.0-46.0); Hemoglobin 8.8 g/dL (12.2-16.2); Lymphocytes % (auto) 10.6 % (10.0-50.0); Mean Corpuscular Hemoglobin 22.6 pg (28.0-32.0); Mean Corpuscular Hgb Conc. 31.5 g/dL (32.0-36.0); Mean Corpuscular Volume 71.6 fL (80.0-100.0); Nucleated Red Blood Cells % 0.2 %; Red Blood Cells 3.89 10^6/uL (4.0-5.20); Red Cell Distribution Width 18.5 % (11.8-14.3); White Blood Cell 8.5 10^3/uL (4.4-10.8)
[2022-10-20] MEDS: cefTRIAXone 1GM/50ML D5W 50 ML IV SCH (09:23)
[2022-10-20 09:45] LABS: Albumin 2.3 g/dL (3.4-5.0); Calcium 7.7 mg/dL (8.5-10.1); Potassium 3.9 mmol/L (3.5-5.1)
[2022-10-20] MEDS: VANCOMYCIN 1GM/250ML 250 ML IV SCH (09:48)
[2022-10-20 09:51] LABS: BUN/Creatinine Ratio 13.1 (10.0-20.0)
[2022-10-20 09:56] LABS: Bilirubin, Total 0.7 mg/dL (0.2-1.0); Magnesium 2.2 mg/dL (1.6-2.6)
[2022-10-20 10:07] LABS: Hypochromia Slight; Platelet Estimate Decreased
[2022-10-20 10:08] LABS: Anisocytosis Slight; Ovalocytes MODERATE; Stomatocytes Few
[2022-10-20] MEDS: ASPirin 81 mg TAB PO SCH (11:05)
[2022-10-20] MEDS: FAMOTIDINE (10MG/ML) 2ML VL IV SCH ×2 (11:06→23:36)
[2022-10-20 11:25] VITALS: PULSE 86
[2022-10-20 12:08] VITALS: BP 148/66; PULSE 88; RESP 20; TEMP 98.7; O2SAT 97
[2022-10-20 17:00] VITALS: PULSE 94; RESP 20; O2SAT 98
[2022-10-20] MEDS: Ensure HIGH Protein Vanilla 8oz Bottle PO SCH ×2 (18:26→23:34)
[2022-10-20 20:00] VITALS: PULSE 80; PULSE 91; RESP 20; O2SAT 99
[2022-10-20 21:38] VITALS: BP 143/71; PULSE 91; RESP 20; TEMP 98.5; O2SAT 99
[2022-10-20] MEDS: PATIENTS OWN MEDICATION (Divalproex Sodium 250 MG) PO SCH (22:00)
[2022-10-20] MEDS: HYDROCORTISONE 10 MG TAB PO SCH (23:34)
[2022-10-20] MEDS: ATORVASTATIN 20 MG TAB PO SCH (23:35)
[2022-10-21] MEDS: SODIUM CHLORIDE 0.9% 1,000 ML IV SCH ×3 (02:00→22:26)
[2022-10-21] MEDS: VANCOMYCIN 1GM/250ML 250 ML IV SCH ×3 (05:00→17:00)
[2022-10-21] MEDS: Ensure HIGH Protein Vanilla 8oz Bottle PO SCH ×4 (06:00→22:26)
[2022-10-21] MEDS: LEVOTHYROXINE SODIUM 50 MCG TAB PO SCH (06:38)
[2022-10-21 08:00] VITALS: PULSE 80; PULSE 91; RESP 20; O2SAT 99
[2022-10-21 09:00] VITALS: BP 150/72; PULSE 78; RESP 18; TEMP 97.8; O2SAT 99
[2022-10-21] MEDS: cefTRIAXone 1GM/50ML D5W 50 ML IV SCH (09:37)
[2022-10-21] MEDS: PATIENTS OWN MEDICATION (Divalproex Sodium 250 MG) PO SCH ×2 (10:00→22:00)
[2022-10-21] MEDS ORDERED: PATIENTS OWN MEDICATION (Atorvastatin Calcium 1 TAB) PO SCH (10:00)
[2022-10-21] MEDS: FAMOTIDINE (10MG/ML) 2ML VL IV SCH (10:35)
[2022-10-21] MEDS: HYDROCORTISONE 10 MG TAB PO SCH ×2 (10:35→22:24)
[2022-10-21] MEDS: LORATADINE 10 MG TAB PO SCH (10:36)
[2022-10-21] MEDS: PANTOPRAZOLE 40 MG TAB PO SCH (10:36)
[2022-10-21] MEDS: ASPirin-EC 81 mg tab PO SCH (10:49)
[2022-10-21 13:00] VITALS: BP 142/71; PULSE 83; RESP 20; TEMP 98.4; O2SAT 99
[2022-10-21] MEDS ORDERED: CIPROFLOXACIN HCL 500 MG TAB PO ONE (16:15)
[2022-10-21 16:45] LABS: Basophils # (auto) 0 10 ^3/uL (0-0.2); Eosinophils # (auto) 0.1 10 ^3/uL (0-0.8); Lymphocytes # (auto) 0.8 10 ^3/uL (0.4-5.4); Neutrophils # (auto) 5.9 10 ^3/uL (1.6-8.6); Red Blood Cells 4.08 10^6/uL (4.0-5.20); Red Cell Distribution Width 18.9 % (11.8-14.3); White Blood Cell 7.1 10^3/uL (4.4-10.8)
[2022-10-21 16:47] LABS: Basophils % (auto) 0.7 % (0.0-2.0); Eosinophils % (auto) 1.4 % (0.0-7.0); Hematocrit 28.8 % (36.0-46.0); Hemoglobin 9.1 g/dL (12.2-16.2); Lymphocytes % (auto) 11.5 % (10.0-50.0); Mean Corpuscular Hemoglobin 22.3 pg (28.0-32.0); Mean Corpuscular Hgb Conc. 31.6 g/dL (32.0-36.0); Mean Corpuscular Volume 70.6 fL (80.0-100.0); Monocytes # (auto) 0.2 10 ^3/uL (0-1.3); Monocytes % (auto) 3.4 % (0.0-12.0); Nucleated Red Blood Cells % 0.1 %
[2022-10-21 17:00] VITALS: BP 138/66; PULSE 84; RESP 18; TEMP 98.7; O2SAT 98
[2022-10-21 17:08] LABS: Albumin 2.3 g/dL (3.4-5.0); Calcium 8.4 mg/dL (8.7-10.4); Magnesium 2.2 mg/dL (1.6-2.6); Potassium 4.3 mmol/L (3.5-5.1)
[2022-10-21 17:10] LABS: Folate (Folic Acid) 12.43 ng/mL (5.38-24)
[2022-10-21 17:14] LABS: BUN/Creatinine Ratio 15.5 (10.0-20.0); Bilirubin, Total 0.2 mg/dL (0.2-1.0); Total Protein 6.5 g/dL (6.4-8.2)
[2022-10-21 20:00] VITALS: PULSE 81; RESP 18; O2SAT 98
[2022-10-21 22:00] VITALS: BP 141/75; PULSE 81; RESP 18; TEMP 98.1; O2SAT 98
[2022-10-21] MEDS: ATORVASTATIN 20 MG TAB PO SCH (22:25)
[2022-10-22 05:00] VITALS: BP 131/73; PULSE 78; RESP 20; TEMP 98.2; O2SAT 92
[2022-10-22] MEDS: LEVOTHYROXINE SODIUM 50 MCG TAB PO SCH (06:01)
[2022-10-22] MEDS: VANCOMYCIN 1GM/250ML 250 ML IV SCH (06:01)
[2022-10-22] MEDS: Ensure HIGH Protein Vanilla 8oz Bottle PO SCH ×2 (06:01→11:44)
[2022-10-22 08:00] VITALS: PULSE 67
[2022-10-22] MEDS ORDERED: BACDST PO (08:37)
[2022-10-22] MEDS ORDERED: LEVO150T10 PO (08:52)
[2022-10-22 09:00] VITALS: BP 135/78; PULSE 67; RESP 17; TEMP 97.7; O2SAT 96
[2022-10-22] MEDS: SODIUM CHLORIDE 0.9% 1,000 ML IV SCH (09:58)
[2022-10-22] MEDS: PANTOPRAZOLE 40 MG TAB PO SCH (09:58)
[2022-10-22] MEDS: ASPirin-EC 81 mg tab PO SCH (09:59)
[2022-10-22] MEDS: LORATADINE 10 MG TAB PO SCH (09:59)
[2022-10-22] MEDS: HYDROCORTISONE 10 MG TAB PO SCH (09:59)
[2022-10-22] MEDS: PATIENTS OWN MEDICATION (Divalproex Sodium 250 MG) PO SCH (10:00)
[2022-10-22] MEDS ORDERED: CIPROFLOXACIN HCL 500 MG TAB PO SCH (10:00)
[2022-10-22] MEDS ORDERED: SULFAMETHOX W/TRIMETH(800/160MG) DS TAB PO SCH (10:00)
[2022-10-22 14:49] LABS: Eosinophils # (auto) 0.2 10 ^3/uL (0-0.8); Eosinophils % (auto) 2.7 % (0.0-7.0); Mean Corpuscular Hemoglobin 22.4 pg (28.0-32.0); Monocytes # (auto) 0.4 10 ^3/uL (0-1.3)
[2022-10-22 14:51] LABS: Basophils # (auto) 0 10 ^3/uL (0-0.2); Basophils % (auto) 0.5 % (0.0-2.0); Hematocrit 28.9 % (36.0-46.0); Hemoglobin 9.1 g/dL (12.2-16.2); Lymphocytes % (auto) 15.6 % (10.0-50.0); Mean Corpuscular Hgb Conc. 31.6 g/dL (32.0-36.0); Mean Corpuscular Volume 71.1 fL (80.0-100.0); Monocytes % (auto) 6.9 % (0.0-12.0); Neutrophils # (auto) 4.6 10 ^3/uL (1.6-8.6); Neutrophils % (auto) 74.3 % (37.0-80.0); Nucleated Red Blood Cells % 0.1 %; Red Blood Cells 4.07 10^6/uL (4.0-5.20); Red Cell Distribution Width 18.8 % (11.8-14.3); White Blood Cell 6.2 10^3/uL (4.4-10.8)
[2022-10-22 15:07] LABS: Calcium 8.1 mg/dL (8.5-10.1); Chloride 108 mmol/L (98-107); Potassium 3.9 mmol/L (3.5-5.1); Sodium 140 mmol/L (136-145)
[2022-10-22 15:08] LABS: Anion Gap 3.9 (5-15); Carbon Dioxide 28.1 mmol/L (20-30)
[2022-10-22 15:13] LABS: BUN/Creatinine Ratio 19.3 (10.0-20.0); Blood Urea Nitrogen 16 mg/dL (9-23); Glucose 100 mg/dL (74-106); Magnesium 1.7 mg/dL (1.6-2.6)
[2022-10-22 15:41] VITALS: TEMP 36.8
[2022-10-22 17:25] VITALS: BP 143/77; PULSE 77; RESP 18; TEMP 97.9; O2SAT 100
== END 2022-10-22 17:50 | disposition home or self-care (01) | DRG 682 ==
LOC: MED 01:04 → EDBD 01:04 → TELE 04:34 → TELE-CENTR 10-20 11:51 → TELE-E-ADS 10-20 20:10
PROVIDERS: ADMIT Nurse Practitioner Family; ATTEND Internal Medicine Geriatric Medicine
DX: N17.9 Acute kidney failure, unspecified (principal); G93.41 Metabolic encephalopathy; E44.0 Moderate protein-calorie malnutrition; N39.0 Urinary tract infection, site not specified; Z16.19 Resistance to other specified beta lactam antibiotics; R78.81 Bacteremia; E86.0 Dehydration; N18.9 Chronic kidney disease, unspecified; E78.2 Mixed hyperlipidemia; D69.6 Thrombocytopenia, unspecified; D50.9 Iron deficiency anemia, unspecified; E03.9 Hypothyroidism, unspecified; Z86.73 Personal history of transient ischemic attack (TIA), and cerebral infarction without residual deficits; Z68.27 Body mass index [BMI] 27.0-27.9, adult
CPT/HCPCS: 36415; 70450; 71045; 80048; 80053; 80202; 80307; 81001; 82607; 82746; 83605; 83735; 84443; 84484; 85007; 85025; 85027; 87040; 87077; 87086; 87088; 87186; 93005; 96365; 96368; 96375; 96376; 97110; 97116; 97163; 97530; 99291; G0378; J0696; J2405; J3490

== ENCOUNTER 2024-04-05 04:27 | Emergency (ER) | payer OTHER ==
[~2024-04-05] VITALS: Ht 170.2 cm; Wt 104.5 kg
[~2024-04-05 04:27] MED LIST changes: +BACDST PO; -LEVO125T7 PO; +LEVO150T10 PO
[2024-04-05 04:28] VITALS: BP 71/32; PULSE 108; RESP 10; TEMP 103.6; O2SAT 95
[2024-04-05 05:08] VITALS: PULSE 61
--- NOTE | 2024-04-05 05:08 | ED.PDOC ---
History of Present Illness HPI Comments 68 y/o F, with a Hx of microcytic anemia, acute metabolic encephalopathy, acute kidney injury, bacteremia, CVA, HLD, PNA, UTI's, thrombocytopenia, and hypothymism, is BIBA c/o ALOC, today. Per EMS report, patient's spouse called after becoming altered from her usual baseline following flu-onset, yesterday. O n scene, patient was found in her recliner covered in vomitus and diarrhea, unresponsive. She was also noted to have had an initial SpO2 of 95% RA, hypotensive, and tachycardic. Upon arrival to ED, patient is still reported to be unchanged from initial unresponsive state. Further history cannot be obtained, due to patient's current altered stated and absence of family/teletype mechanic historians, at time of initial assessment. Time Seen by MD: 04:35 Primary Care Provider: UNKNOWN Reviewed Notes: Nurses Notes, Associate Loan Officer Notes, Medications, Allergies Allergies: Coded Allergies: NO KNOWN ALLERGIES (Unverified , 04/11/19) Home Meds Active Scripts Levothyroxine Sodium (Levothyroxine Sodium) 150 Mcg Tab, 1 TAB PO DAILY, #30 TAB 5 Refills Prov:CATHY TAYLOR MD 10/22/22 Sulfamethoxazole W/Trimethopri (Bactrim Ds Tablet) 1 Tab Tb, 1 TAB PO Q12HR for 10 Days, #20 TAB Prov:CATHY TAYLOR MD 10/22/22 Reported Medications Amantadine Hcl (Amantadine Hcl) 100 Mg Cap, 100 MG PO Q12HR for 30 Days, MG 06/05/21 Divalproex Sodium (Divalproex Sodium) 250 Mg Tab, 250 MG PO BID for 30 Days, MG 06/05/21 Aspirin (Aspir-Low) 81 Mg Tab, 81 MG PO DAILY for 30 Days, MG 06/05/21 Alendronate Sodium (Alendronate Sodium) 35 Mg Tab, 1 TAB PO QWEEKLY, #4 TAB 11 Refills 06/05/21 Atorvastatin Calcium (ATORVASTATIN CALCIUM) 40 Mg Tab, 1 TAB PO DAILY, #30 TAB 5 Refills 06/05/21 Oxybutynin Chloride (Ditropan Xl) 5 Mg Tab, 5 MG PO BID, TAB 03/05/20 Loratadine (Claritin) 10 Mg Tab, 1 TAB PO DAILY, #30 TAB 5 Refills 1/3/21 Pantoprazole Sodium Sesquihydr (Protonix) 40 Mg Tab, 40 MG PO DAILY, #30 TAB 02/28/20 Hydrocortisone Base (Hydrocortisone) 10 Mg Tab, 10 MG PO BID, TAB 05/18/16 Information Source: Emergency Med Personnel Mode of Arrival: EMS Severity: Moderate Timing: Hours Duration: Since onset Prehospital treatment: 12 Lead EKG, Sfdc Developer Past Medical History PAST MEDICAL HISTORY: Anemia (Microcytic anemia), CVA, High Lipids, Thyroid, UTI'S Past Medical History (Other): Acute metabolic encephalopathy Acute kidney injury Hypothyroidism Thrombocytopenia Bacteremia Surgical History: Unknown, Unobtainable OCC THERAPY ASST History: Unknown, Unobtainable Family History Family History: Unknown, Unobtainable Social History Smoker: Non-Smoker Alcohol: Denies ETOH Use Drugs: Denies Drug Use Lives In: Home Neurological: reports: others (ALOC) All Other Systems: Reviewed and Negative (negative unless otherwise stated above or in HPI) Physical Exam General Appearance: Obese, Other (emesis on all over clothing and mouth) HEENT: NOT DONE Neck: NOT DONE Respiratory: Other (agonal breathing ) Cardiovascular: Bradycardia Breast Exam: Deferred Gastrointestinal: NOT DONE Genitalia: Deferred Pelvic: Deferred Rectal: Deferred Extremities: NOT DONE Neurologic: NOT DONE Cerebellar Function: NOT DONE Reflexes: NOT DONE Skin: Mottled Lymphatic: NOT DONE Was a procedure done? Was a procedure done?: Yes Sedation Sedation?: No Intubation Indication: Altered Mental Status, Airway Protection Prep: No Preoxygenation Pretreated with: Nothing Medicated with: Nothing Intubation Approach: Orotracheal (7.5) Intubation size: cm (22) Informed consent obtained: No Risks/benefits/alt described: No EKG EKG : Pulse Rate (adult): 61 [place]: Normal Cardiac Rhythm: NSR Block: None Hypertrophy: None ST: Normal Differential Dx Considerations may include: sepsis, aspiration, cardiac arrest, respiratory arrest X-Ray, Labs, Meds, VS Vital Signs Date Time Temp Pulse Resp B/P (MAP) Pulse Ox O2 Delivery O2 Flow Rate FiO2 04/05/24 08:00 218.5 0 0 0 0 0 04/05/24 05:08 61 04/05/24 04:32 61 04/05/24 04:28 103.6 108 10 71/32 (45) 95 103.6 04/05/24 04:28 108 10 95 Room Air* 0 21 04/05/24 04:28 103.6 108 10 71/32 (45) 95 Upon arrival at bedside the patient is blood pressure was on a downward spiral heart rate was approximately 48. We initiated ACLS protocol. The patient was therefore intubated as she was unresponsive and emesis covered her mouth in clothing. Please see run sheet for further information. ACLS protocol fell and the patient at 06/02/2003. I was told by our charge nurse the patient was unable to come to the hospital at this time and wanted me to informed the that his had passed and nine granted that and spoke to the over the phone for several minutes. Time of 1ST Reevaluation: 04:51 Reevaluation 1ST: Patient Education/Counseling: Other (patient ) Family Education/Counseling: No Family Present Departure 1 Departure Time of Disposition: 04:41 Impression: Primary Impression: Cardiopulmonary arrest Disposition: 20 Condition: Other Discharged With: Spouse (With spoke with the over the phone explaining to him disposition his and with corresponding prior to in on route to the emergency room.) Critical Care Note Critical Care Time?: Yes (35 min-critical care time only) Stability Stability form required: No Heart Score Heart Score: Heart Score Response (Comments) Value History N/A 0 EKG N/A 0 Age N/A 0 Risk Factors N/A 0 Troponin N/A 0 Total 0 I personally scribed for MYRTLE GILLILAND MD ([email or web address]) on 04/05/24 at 05:08. Electronically submitted by Waqas Whitney ([email or web address]). I personally scribed for MYRTLE GILLILAND MD ([email or web address]) on 04/05/24 at 05:11. Electronically submitted by Waqas Whitney ([email or web address]). MYRTLE GILLILAND MD Apr 05, 2024 05:08
--- NOTE | 2024-04-05 06:15 | ECG ---
[facility] Test Date: 2024-04-05 Test Time: 04:32:37 Pat Name: RUBÉN GONZALEZ Department: ED Room: Gender: F Rail Signal Worker: CHERRIE : 1955 Requested By: MYRTLE GILLILAND Order Number: [id number] Reading MD: Alex Cast Measurements Intervals [place] Rate: 61 P: 21 NM: 148 QRS: 8 QRSD: 101 T: 31 QT: 460 QTc: 464 Interpretive Statements Sinus rhythm Low voltage, precordial leads Abnormal R-wave progression, early transition Probable left ventricular hypertrophy Repol abnrm suggests ischemia, diffuse leads Electronically Signed On 04-05-2024 21:15:15 PST by Alex Cast Please click the below link to view image of tracing.
--- NOTE | 2024-04-05 08:00 | RESUS ---
CODE BLUE ASSESSSMENT History of Events History of Events: 68 y/o F, with a Hx of microcytic anemia, acute metabolic encephalopathy, acute kidney injury, bacteremia, CVA, HLD, PNA, UTI's, thrombocytopenia, and hypothymism, is BIBA c/o ALOC, today. Per EMS report, patient's spouse called after becoming altered from her usual baseline following flu-onset, yesterday. On scene, patient was found in her recliner covered in vomitus and diarrhea, unresponsive. She was also noted to have had an initial SpO2 of 95% RA, hypotensive, and tachycardic. Upon arrival to ED, patient is still reported to be unchanged from initial unresponsive state. Initial Information Date: Apr 05, 2024 Time: 04:38 Location of Arrest: ER Arrest Witnessed: Yes CPR started initial time: 04:38 CPR started by whom: Hospital Staff Pre-Hospital Care: ACLS Type of arrest: Cardiac, Respiratory, Adult, Witnessed Spontaneous Respirations: No Pulse Present: No Monitoring: ECG, Pulse Oximetry, Telemetry Crash Cart Opened and Supplies: Yes Airway Ventilation Breathing at Onset: Apneic O2 Sat by Pulse Oximetry: 0 Oxygen 100% Time of first Assisted Ventila: 04:42 Artificial Ventilation: Bag/Endo tube Intubation Size: 8.0 cuffed Intubated by: DR GILLILAND Intubation Attempts: 1 Intubated orally: Yes Intubated Nasaly: No Tube secured at: 24 Cricoid pressure done: No CO2 indicator used: No Confirmation: Auscultation, Exhaled CO2 Suctioning (Oral/Tracheal): No Circulation Circulation : Time: 04:38 Pulse Rate (adult): 0 Blood Pressure Systolic: 0 Blood Pressure Diastolic: 0 Temperature (Fahrenheit): 103.6 Procedure - Intraosseous Time of intraosseous: 04:42 Size of intraosseous: 18 Site of Intraosseous: Tibia ken-medial Intraosseous inserted by: SUMANTH Number of attempts for Intraos: 1 Medications & Response Medications and Responses #1: Medication Time: 04:42 ADULT Medications Given ADULT: Epinephrine 1 mg, Sodium Bacarbinate 50 meq, Calcium Chloride 10 mL Route of Administration: IO Heart Rate: 0 EKG Rhythm: Asystole Blood Pressure Systolic: 0 Blood Pressure Diastolic: 0 Respiratory Rate: 0 O2 Sat by Pulse Oximetry: 0 EKG Rhythm: Asystole Comment PULSE CHECK AT 0445 Medications and Responses #2: Medication Time: 04:45 ADULT Medications Given ADULT: Epinephrine 1 mg Route of Administration: IO Heart Rate: 0 EKG Rhythm: Asystole Blood Pressure Systolic: 0 Blood Pressure Diastolic: 0 Respiratory Rate: 0 O2 Sat by Pulse Oximetry: 0 EKG Rhythm: Asystole Comment PULSE CHECK 0448 NO PULSE Medications and Responses #3: Medication Time: 04:48 ADULT Medications Given ADULT: Epinephrine 1 mg Route of Administration: IO Heart Rate: 0 EKG Rhythm: Asystole Blood Pressure Systolic: 0 Blood Pressure Diastolic: 0 Respiratory Rate: 0 O2 Sat by Pulse Oximetry: 0 EKG Rhythm: Asystole Comment PULSE CHECK AT 0451 NO PULSE, PT PRONOUNCED. Pacing Pacer Pads Applied and Pacing: Yes Nurses Notes Meghann Coma Scale Eye Opening: None (1) [place] Coma Scale Verbal: None (1) [place] Coma Scale Motor: None (1) [place] Total: 3 Pupil Reaction: Non Reactive Bedside Blood Glucose: 159 EKG Rhythm: Asystole Time Code Ended Time Code Ended: 04:51 Post Arrest Status: Outcome of code: Unsuccessful Patient pronounced by: DR GILLILAND Time patient pronounced: 04:51 Family notified: Yes Attending called: Yes Code Team Present: TEREZA ERNST RN HS, FREDDY CHARGE, FERNANDO RN, RADHA RN, FAMILIA SANFORD LILA RT, BRADLY RT Post Resuscitation Neurologica Pupil Size: 4 TEREZA MENDIETA Apr 05, 2024 08:00
== END 2024-04-05 04:51 ==
LOC: EDBD 04:27 → ER 04:27
DX: I46.9 Cardiac arrest, cause unspecified (principal); E78.5 Hyperlipidemia, unspecified; E03.9 Hypothyroidism, unspecified; R19.7 Diarrhea, unspecified; R41.82 Altered mental status, unspecified; R11.10 Vomiting, unspecified; Z86.73 Personal history of transient ischemic attack (TIA), and cerebral infarction without residual deficits
CPT/HCPCS: 31500; 36680; 82947; 92950; 93005